=== PATIENT | male | born 1935 | race Hispanic/Latino ===

== ENCOUNTER 2019-07-10 15:56 | Inpatient (IN) | payer MEDICARE ==
[~2019-07-10] VITALS: Ht 152.4 cm; Wt 45.8 kg
[~2019-07-10 15:56] MED LIST: CALCITRIOL0.25 MCG PO; CEPHALEXIN500 MG PO; FLOMAX0.4 MG PO; FUROSEMIDE40 MG PO; HYDRALAZINE HCL25 MG PO; HYDROCODON-ACE1 EAC3 PO; LISINOPRIL5 MG PO; METOPROLOL TART50 MG PO; RENVELA0.8 GM PO; SENSIPAR30 MG PO
[2019-07-10 18:20] LABS: STREPTOCOCCUS GRP A ANTIGEN NEGATIVE (NEGATIVE)
[2019-07-10 18:31] LABS: INFLUENZAE A&B ANTIGEN (RAPID) NEGATIVE (NEGATIVE)
--- NOTE | 2019-07-10 19:15 | Diagnostic Imaging Report ---
EXAMINATION: PA and lateral views of the chest. COMPARISON: None CLINICAL HISTORY: Possible bronchitis, cough for 2 days DISCUSSION: Lines/tubes: None. Lungs and pleura: The lungs are well inflated. Opacification of the lower half of the left hemithorax with obscuration of the left hemidiaphragm, consistent with large left pleural effusion and likely associated atelectasis or consolidation. Linear calcifications projecting in the diaphragmatic pleura may represent pleural plaques. Heart and mediastinum: Cardiac silhouette is obscured. Central pulmonary venous congestion. Bones and soft tissues: No acute bony abnormalities. Degenerative changes in the thoracic spine IMPRESSION: Large left pleural effusion and likely associated atelectasis or consolidation. Recommend reevaluation with chest PA and lateral after appropriate treatment Signed by: Dr. Trent Arreaga M.D. on 07/10/2019 7:12 PM
[2019-07-10 19:20] LABS: BASOPHILS # (AUTO) 0.1 (0.0-0.1); BASOPHILS % 1.2 % (0.0-1.0); EOSINOPHILS # (AUTO) 0.2 (0.0-0.4); EOSINOPHILS % 3.9 % (0.0-6.0); HEMATOCRIT 42.2 % (38.2-49.6); HEMOGLOBIN 13.5 g/dL (14.0-18.0); LYMPHOCYTES # (AUTO) 1.1 (1.0-3.2); LYMPHOCYTES % 18.9 % (18.0-39.1); MEAN CORPUSCULAR HEMOGLOBIN 27.1 pg (28-32); MEAN CORPUSCULAR VOLUME 84.7 fL (81-99); MONOCYTES # (AUTO) 0.5 (0.2-0.8); MONOCYTES % 9.4 % (4.4-11.3); NEUTROPHILS # (AUTO) 3.7 (2.1-6.9); NEUTROPHILS % 66.2 % (38.7-80.0); PLATELET COUNT 193 x10e3/uL (140-360); RED BLOOD COUNT 4.98 x10e6/uL (4.3-5.7); RED CELL DISTRIBUTION WIDTH 15.9 % (11.7-14.4)
[2019-07-10 19:27] LABS: INR 0.82; PROTHROMBIN TIME 11.8 seconds (11.9-14.5)
[2019-07-10 19:28] LABS: PARTIAL THROMBOPLASTIN TIME 43.9 seconds (23.8-35.5)
[2019-07-10] MEDS ORDERED: CEFTRIAXONE SOD 1 GM/NS 50 ML 50 ML IV SCH (19:30)
[2019-07-10 19:35] LABS: ALBUMIN 3.1 g/dL (3.5-5.0); ALBUMIN/GLOBULIN RATIO 0.7 (0.8-2.0); ANION GAP 13.7 mmol/L (8-16); CALCIUM 10.1 mg/dL (8.4-10.2); CREATININE, SERUM 2.34 mg/dL (0.72-1.25); POTASSIUM 3.7 mmol/L (3.5-5.1)
[2019-07-10 19:46] LABS: CREATINE KINASE MB 0.7 ng/mL (0-5.0)
[2019-07-10] MEDS: AZITHROMYCIN 500MG/NS 250 ML 250 ML IV SCH (20:45)
[2019-07-10] MEDS ORDERED: SODIUM CHLORIDE FLUSH 10 ML SYR INJ PRN (21:00)
[2019-07-10] MEDS ORDERED: CEFEPIME 1GM/NS 0.9% 50 ML 50 ML IV SCH (22:00)
--- NOTE | 2019-07-10 22:12 | NUR ---
Pulmonary Get thoracentesis for diagnostic and therapeutic purposes Empiric abx in the meanwhile to cover for resistant hospital associated organisms Thanks
[2019-07-11] VITALS (7 sets, daily range): BP systolic 105–168; BP diastolic 52–84
--- NOTE | 2019-07-11 02:16 | NUR ---
Received report from ER nurse.
--- NOTE | 2019-07-11 03:05 | NUR ---
Patient arrived to floor via stretcher.
--- NOTE | 2019-07-11 04:03 | NUR ---
Patient had a small, brown, soft BM. Patient AAOx1-2. Tele SR 85.Left upper arm fistula with thrill and bruit.
--- NOTE | 2019-07-11 06:57 | NUR ---
H&P cc: sob HPI: 83yoM, PCP unknown, with hx ESRD on HD, now with SOB, found to have pleural effusion. Pt is poor historian. PMH: ESRD on HD, Elderly fall, HTN, Dementia, Gout, OA PSHx: HD access Allergies; see emr Fh/Sh; family involved in care; no illicits meds; see MAR ROS: unreliable v/s; revd PE tired appearing; malnourished appearing anicteric; bitemporal wasting; ns1s2 reduced breath sounds; left arm with bruit at fistula site no edema skin dry flat affect labs/meds revd A/P: left Pleural effusion- will need thoracentesis ESRD on HD- nephr consult HTN- home med Physical deconditioning- PT Moderate to severe Protein-calorie malnutrition- check PreAlb; start renal ensure. Prop; scd Dispo: pulm consulted; drainage pending; Junior Mejía MD, PhD.
[2019-07-11] MEDS ORDERED: ONDANSETRON HCL INJ 2MG/ML 2ML 2 MG/ML VIAL IV PRN (07:00)
[2019-07-11] MEDS ORDERED: DOCUSATE SODIUM 100 MG CAP PO PRN (07:00)
--- NOTE | 2019-07-11 07:00 | NUR ---
BEDSIDE SHIFT REPORT RECEIVED FROM THE MARKETING ASSISTANT MANAGER RN. PT AAOX1. BED IS LOW AND LOCKED. SIDE RAILS X2. BED ALARM IS ON. PT DENIES NEEDS AT THIS TIME.
[2019-07-11] MEDS: SEVELAMER CARBONATE 800 MG TAB PO SCH ×4 (08:30→16:56)
[2019-07-11] MEDS: METOPROLOL TARTRATE 50 MG TAB PO SCH ×2 (09:09→18:00)
[2019-07-11] MEDS: HYDRALAZINE HCL 25 MG TAB PO SCH ×3 (09:09→20:40)
[2019-07-11] MEDS: CINACALCET 30 MG TAB PO SCH (09:10)
--- NOTE | 2019-07-11 10:00 | NUR ---
MULTIPLE CALLS MADE TO GET TELEPHONE CONSENT FOR THORACENTESIS. NO ANSWER. LEFT MESSAGE.
--- NOTE | 2019-07-11 11:00 | NUR ---
FAMILY ARRIVED AT BEDSIDE. DR. ANAYA PRESENT. RECEIVED CONSENT FROM DAUGHTER SRIRAM. THORACENETSIS IMAGE GUIDED LATERALLY PER SKIP TENDER PER DR. ANAYA
--- NOTE | 2019-07-11 11:34 | NUR ---
Pulmonary [id number] Thanks!
--- NOTE | 2019-07-11 12:30 | NUR ---
PT OFF UNIT FOR PROCEDURE IN SAFE CONDITION.
--- NOTE | 2019-07-11 13:35 | NUR ---
PT BACK TO UNIT AFTER PROCEDURE. FAMILY AT BEDSIDE.
--- NOTE | 2019-07-11 13:36 | NUR ---
1050 ML OUTPUT AFTER THORACENTESIS PER THE DIAGNOSTIC MEDICAL SONOGRAPHER.
--- NOTE | 2019-07-11 13:39 | Diagnostic Imaging Report ---
Exam: Ultrasound guided thoracentesis Clinical History: Pleural effusion Consent: Benefits and risks were explained to the patient's family who gave consent to the procedure. Complication: None immediate Procedure: The patient was placed in right decubitusposition. The left posterior chest was prepped and draped in usual sterile fashion. 1% lidocaine was used as local anesthetic. Under ultrasound guidance, a thoracentesis catheter was inserted into the pleural cavity. Approximately 1050 cc of light brown-colored fluid was aspirated. The catheter was removed. The specimen was sent to the laboratory for further analysis. The patient tolerated the procedure well without any adverse reaction. A STAT chest x-ray was ordered. The patient left the department in stable condition. Impression: Ultrasound guided left thoracentesis. Signed by: Dr. Bruce Pena MD on 07/11/2019 1:37 PM
--- NOTE | 2019-07-11 13:56 | Diagnostic Imaging Report ---
Exam: Chest one view Clinical history: Status post thoracentesis Findings: Increase in hazy opacity is noted in the left hemithorax likely due to effusion. There is no evidence of pneumothorax. Increased retrocardiac opacity is also noted which may represent atelectasis versus consolidation. The cardiac size appears mildly enlarged. The regional osseous structures are unremarkable. Signed by: Dr. Bruce Pena MD on 07/11/2019 1:53 PM
--- NOTE | 2019-07-11 15:58 | NUR ---
Nutrition Intervention Note RD Recommendation(s) for Physician: - Recommend PRESCHOOL PRINCIPAL evaluation, previously on pureed diet at prior admit. Continue renal restrictions, diet texture per PRESCHOOL PRINCIPAL/MD. - Recommend Nepro BID for adequacy - Renal MVI once daily Pt meets criteria for mild protein calorie malnutrition Plan of Care: RD following, monitoring for tolerance and adequacy Nutrition reason for involvement: Dx: ESRD RD Assessment 07/11: 83 YOM admitted for ESRD, PNA, and pleural effusion. Pt seen today per admit dx. Pt s/p thoracentesis today, sleeping at time of visit. Pt's at bedside reports good intake at home most of the time, sometimes fair. She reports he drinks 1 Nepro per day, she encourages him to drink 2- RD to order Nepro BID to meet needs. Pt's denies any N/V/C/D. She reports that he requires assistance with feedings and is on a mechanical soft diet at home, pt on pureed diet per last admit in April- recommend PRESCHOOL PRINCIPAL evaluation for po diet safety. Pt's with no questions or concerns at time of visit. Chart reviewed. Will continue to monitor. Principal Problems/Diagnoses: ESRD, PNA, pleural effusion PMH: DJD, ESRD on HD, DM, HTN GI: LBM 07/11 Skin: no PU Labs: 07/10: Na 138, K 3.7, Cl 95, CO2 33, BUN 14, Cr 2.34, Gluc 99 Meds: sensipar, abx, renvela, zofran, colace Ht: 60in Wt: 101 lb BMI: 19.7 kg/m2 IBW: 106 lb Malnutrition Evaluation (07/11/19) The patient meets criteria for MILD protein-calorie malnutrition. Energy intake: Mild- fair intake at times per Weight loss: minor changes, 5% in 3 months per prior admit Fat loss: Mild, eyes somewhat hollow Muscle loss: Moderate, clavicle visible Supporting Evidence: Fluid accumulation: none observed Functional Status: not assessed Nutrition Prescription (Diet Order): Renal Estimated Nutritional Needs: 1648-0418 calories/day (30-35 kcal/kg CBW) 55-82 g protein/day (1.2-1.8 g pro/kg CBW) Diet Adequacy: Not meeting calorie needs, Not meeting protein needs Diet Tolerance: tolerating po, requiring PRESCHOOL PRINCIPAL strategies per Diet Education Needs Assessment: Diet education not indicated at this time Nutrition Care Level: Mod Nutrition Diagnosis: Chronic disease related malnutrition related to ESRD and requiring modified diet as evidenced by increased protein needs and ONS. Goal: Patient will meet 75-100% of estimated needs by follow up Progress: N/A Interventions: -Mineral modified diet, Commercial beverage, Recommended Modifications, Multivitamin/mineral supplement therapy, Collaboration with other providers, Monitoring/Evaluation: -Total energy intake, Total protein intake, Modified diet, Liquid supplement, Weight change Signed: Samantha Sears RD, LD, [facility]
[2019-07-11 16:37] LABS: CREATINE KINASE MB 0.9 ng/mL (0-5.0)
[2019-07-11 17:09] LABS: BODY FLUID APPEARANCE SL.CLOUDY; BODY FLUID COLOR STRAW; BODY FLUID TYPE PLEURAL
--- NOTE | 2019-07-11 17:27 | Consultation ---
DATE OF CONSULTATION: 07/11/2019 REQUESTING PHYSICIAN: Uche Verduzco MD. REASON FOR CONSULTATION: ESRD management. HISTORY OF PRESENT ILLNESS: Thank you for allowing us to participate in Mr. Campbell' care. An 83-year-old male with a history of recent failure to thrive over the last year to two, came with worsening cough and congestion. He did have nasal discharge. No definite fevers. He himself is a poor historian. ER evaluation showed left significant pleural effusion. He has what appears to be chronic dementia with memory issues. PAST MEDICAL HISTORY: Significant for: 1. ESRD. 2. Failure to thrive. 3. Likely dementia. 4. Anemia of CKD. 5. History of frequent falls. 6. Secondary hyperparathyroidism, on binders. 7. Hypertension. 8. Prior decubitus ulcer. HOME MEDICATIONS: 1. Cinacalcet 30 mg daily. 2. Hydralazine 25 t.i.d. 3. Metoprolol 100 b.i.d. 4. Renvela 1600 mg t.i.d. Currently on Zithromax, cefepime. SOCIAL HISTORY: Lives at home. FAMILY HISTORY: Unable to obtain. REVIEW OF SYSTEMS: CONSTITUTIONAL: Feels weak. RESPIRATORY: Have some cough and dyspnea. CARDIAC: No angina or syncope. NEURO: Chronic memory loss. Rest of review is negative. PHYSICAL EXAMINATION: GENERAL: Lying in bed, in no distress. VITAL SIGNS: Temperature is 97.9, pulse 80, blood pressure 168/60. HEENT: Atraumatic. NECK: Unable to see any JVD. CHEST: Decreased breath sounds on the left. CARDIAC: Normal heart tones. Rhythm sounds regular. S4 is present. EXTREMITIES: No edema. ABDOMEN: Benign. NEURO: Unable to recollect this morning's breakfast. LABORATORY DATA: Hemoglobin is 13.5, white count 5.6, and platelets of 193. Potassium 3.7, serum CO2 33, creatinine 2.34, BUN 14. Weight is only 101 pounds of note. ASSESSMENT: 1. End-stage renal disease. 2. Hypertension. 3. Left pleural effusion. 4. Overall volume status appears reasonable at this point, I do not think he will require extra ultrafiltration. 5. Satisfactory hemoglobin. PLAN: Await pulmonary evaluation. He may need a pleural tap. I agree with antibiotics. Regular Wednesday, Wednesday, Wednesday hemodialysis per usual schedule. We will follow along. MD DOROTEO Jimenez/CHOCO /[id number]
[2019-07-11 17:53] LABS: RBC,BODY FLUID 365 cells/uL; WBC,BODY FLUID 121 cells/uL
--- NOTE | 2019-07-11 18:17 | Consultation ---
DATE OF CONSULTATION: 07/11/2019 Pulmonary Medicine Consult REASON FOR REFERRAL: Pleural effusion. HISTORY OF PRESENT ILLNESS: Mr. Campbell is a pleasant 83-year-old gentleman with pleural effusion. The patient with past medical history of end-stage renal disease, GERD, hypertension, dementia. The patient states he was hospitalized at outside facility in March and he may have had x-ray there. The patient came to this hospital in April 2019, where he had a fall which hurt his left upper extremity and left shoulder. He did not have x-ray at that time. The patient may have gone to a assisted in the interim. The patient with no known previous pulmonary or pleural condition. The patient reportedly was having a sore throat. Due to his baseline weakness, the patient was referred to emergency room. Chest x-ray showed a large left pleural effusion, which occupied probably more than half of the left hemithorax. At this point, I am consulted. The patient without veronica fevers. No veronica shortness of breath. PAST MEDICAL HISTORY: End-stage renal disease on hemodialysis for three years, hypertension, GERD, dementia. MEDICATIONS: Medication list reviewed per the chart record. ALLERGIES: NO KNOWN DRUG ALLERGIES. SOCIAL HISTORY: The patient only smoked two years of his life, is mainly a nonsmoker. No drugs. No alcohol. He is and his is still independent. FAMILY HISTORY: Noncontributory. REVIEW OF SYSTEMS: Cannot get reliably as patient is not oriented. OBJECTIVE: VITAL SIGNS: Currently afebrile, vital signs noted and reviewed per the chart record. GENERAL: Calm, in bed. HEENT: Normocephalic, atraumatic. NECK : Supple. Throat midline. LUNGS: Bilateral air entry, decreased breath sounds on the left side. Few rales. CARDIOVASCULAR: S1 and S2. No murmurs, rubs, or gallops. ABDOMEN: Soft, nontender. EXTREMITIES: No clubbing. No cyanosis. There is no edema. INTEGUMENT: No rash, just thin skin mildly, no purpura. LABORATORY DATA: 5.6 white count, 42 hematocrit, 193 platelets. 14 BUN, 2.3 creatinine. 3.7 potassium. IMPRESSION AND PLAN: 1. Large left-sided pleural effusion. 2. Treat for possible pneumonia, hospital-acquired organisms and would be acquired prior to hospitalization. 3. Recent April 2019 fall with no definite trauma. Seems less likely hemothorax. 4. Hypertension. 5. Gastroesophageal reflux disease. 6. End-stage renal disease, on hemodialysis for 3 years. We will get thoracentesis today. Send for diagnostic studies antibiotics. Antibiotic should cover for resistant organisms. I discussed with the and daughter already. Follow up closely. MD TAHIR Riley/MODL /[id number]
--- NOTE | 2019-07-11 19:00 | NUR ---
BEDSIDE SHIFT REPORT GIVEN TO THE PREFORMER IMPREGNATED FABRICS RN. PT DENIED FURTHER NEEDS.
--- NOTE | 2019-07-11 19:05 | NUR ---
Patient visited in room during nursing rounds. Patient alert and oriented x1. Pt german speaking only. Pt has hemodialysis MWF with access of left upper arm fistula. S/P left thoracentesis today. Pt on bedrest and appear having generalized weakness. Bed alarm active. Pt on scheduled IV antibiotics. Call greene within reach.
[2019-07-11 19:14] LABS: EOSINOPHILS,BODY FLUID 4 %; LYMPHOCYTES,BODY FLUID 66 %; MONO/MACROPHG,BODY FLUID 10 %; NEUTROPHILS,BODY FLUID 7 %; OTHER CELLS,BODY FLUID 13 %
[2019-07-11] MEDS ORDERED: SODIUM CHLORIDE 0.9% 250ML 250 ML ONE (20:34)
[2019-07-11] MEDS: AZITHROMYCIN 500MG/NS 250 ML 250 ML IV SCH (20:38)
[2019-07-11] MEDS ORDERED: ZOLPIDEM TARTRATE 5 MG TAB PO PRN (21:00)
[2019-07-12] VITALS (8 sets, daily range): BP systolic 136–167; BP diastolic 42–77
--- NOTE | 2019-07-12 06:31 | Diagnostic Imaging Report ---
Examination: Single AP view of the chest. COMPARISON: 07/11/2019 INDICATION: Effusion DISCUSSION: Hazy opacity over the inferior left hemithorax related to pleural effusion. Retrocardiac airspace disease may reflect atelectasis or aspiration. No new consolidations. Stable cardiomediastinal contour. No acute osseous abnormality. Calcifications project over the upper abdomen, unchanged. IMPRESSION: Left pleural effusion with adjacent lower lobe airspace disease, likely atelectasis. Signed by: Dr. Shalom Oneill M.D. on 07/12/2019 6:28 AM
--- NOTE | 2019-07-12 06:41 | NUR ---
IM- progress note O/N see below ROS: unreliable v/s; revd PE tired appearing; malnourished appearing anicteric; bitemporal wasting; ns1s2 reduced breath sounds; left arm with bruit at fistula site no edema skin dry flat affect labs/meds revd A/P: left Pleural effusion- will need thoracentesis ESRD on HD- nephr consult HTN- home med Physical deconditioning- PT Moderate to severe Protein-calorie malnutrition- check PreAlb; start renal ensure. Prop; scd Dispo: pulm consulted; drainage pending; 07/12 check H/H; reported 1050ml fluid removed; start PTmobilize; Junior Mejía MD, PhD.
[2019-07-12 06:51] LABS: HEMATOCRIT 35.5 % (38.2-49.6); HEMOGLOBIN 11.1 g/dL (14.0-18.0)
--- NOTE | 2019-07-12 07:05 | NUR ---
Received patient lying in bed with eyes closed. Respiration even and unlabored without SOB. Call light in reach.
[2019-07-12] MEDS: SEVELAMER CARBONATE 800 MG TAB PO SCH ×3 (08:54→18:44)
[2019-07-12] MEDS: CINACALCET 30 MG TAB PO SCH (08:55)
[2019-07-12] MEDS: HYDRALAZINE HCL 25 MG TAB PO SCH ×3 (09:00→20:53)
[2019-07-12] MEDS: METOPROLOL TARTRATE 50 MG TAB PO SCH ×2 (09:00→18:44)
--- NOTE | 2019-07-12 11:05 | NUR ---
Spoke with Sharla from [facility] to notify today's scheduled HD.
--- NOTE | 2019-07-12 12:51 | NUR ---
Pulmonary Medicine DATE 07/12/2019 SUBJECTIVE: PATIENT reporte with 1050 cc out by left thoracentesis yesterday CXR today with small residual effusion, left lung opacities persist borderline analysis, but exudative by lights criteria 66% lymphocytes d/w REVIEW OF SYSTEMS: Cannot get reliably as patient is not oriented. OBJECTIVE: VITAL SIGNS: vital signs noted and reviewed per the chart record. GENERAL: Calm, in bed. HEENT: Normocephalic, atraumatic. NECK : Supple. Throat midline. LUNGS: Bilateral air entry, decreased breath sounds on the left side. Few rales. CARDIOVASCULAR: S1 and S2. No murmurs, rubs, or gallops. ABDOMEN: Soft, nontender. EXTREMITIES: No clubbing. No cyanosis. no edema. INTEGUMENT: No rash, just thin skin mildly, no purpura. LABORATORY DATA: per emr IMPRESSION AND PLAN: 1. Large left-sided pleural effusion s/p thoracentesis. Exudative by Lights criteria. 2. Treat for possible pneumonia, hospital-acquired organisms and would be acquired prior to hospitalization. 3. Hypertension. 4. Gastroesophageal reflux disease. 5. End-stage renal disease, on hemodialysis for 3 years. Follow thoracentesis analysis of fluid Check CT chest with iv contrast Empiric Antibiotics Follow up closely. Thank you Dr Mejía. Please call with questions.
--- NOTE | 2019-07-12 13:37 | Progress Note ---
DATE: 07/12/2019 SUBJECTIVE: He is status post ultrasound-guided thoracentesis, still with some left pleural effusion. He says breathing is better, although he is somewhat of a poor historian lately. OBJECTIVE: VITAL SIGNS: Temp 97.2, pulse 55, blood pressure 136/42. CHEST: Diminished breath sounds at the left base. EXTREMITIES: No edema. VASCULAR EXAM: Pain in left upper extremity AV fistula. LABORATORY DATA: Hemoglobin is 11.1. Last potassium was 3.7. ASSESSMENT: 1. End-stage renal disease. 2. Hypertension. 3. Left pleural effusion. 4. Dementia. 5. Failure to thrive. 6. Anemia of chronic kidney disease secondary hyperparathyroidism, on binders. PLAN: 1. Hemodialysis today 4 hour run, 3 L fluid removal target, 3 potassium bath, blood flow rate 350 mL/minute. 2. Dialysate flow rate 700 mL/minute. 3. F160 filter. MD DOROTEO Jimenez/CHOCO /[id number]
[2019-07-12] MEDS ORDERED: SODIUM CHLORIDE 0.9% 1000ML 2,000 ML ONE (14:04)
--- NOTE | 2019-07-12 15:15 | NUR ---
Visit made by the Spiritual Care Department Pastoral Visitor, Toña Villanueva. PV provided ashes for Evert Wednesday. Pastoral Visitor informed pt/family of the scope of [employer] and availability. MARIAMA SANCHEZ Police Commanding Officer Spiritual Care Department O: [phone]
--- NOTE | 2019-07-12 15:46 | NUR ---
SPOKE WITH ABOUT [facility], SHE STATES SHE HAS HAD A HORRIBLE EXPERIENCE WITH [facility] AND WILL NEVER SEND HER TO A SNF AGAIN, SHE IS REFUSING ANY REFERRAL FOR SNF. SHE STATES SHE HAD [facility] AND WILL UTILIZE THEM AGAIN IF NEEDED.
--- NOTE | 2019-07-12 15:47 | NUR ---
STATES HAS A PROVIDER FOR 30 HOURS A WEEK
--- NOTE | 2019-07-12 16:42 | NUR ---
ORDER RECEIVED FOR HOME HEALTH / PT. MET W THE PT AND FAMILY AT THE BEDSIDE TO DISCUSS CHOICE. STATES THE PT IS ALREADY ON SERVICE W [facility] AND WOULD LIKE TO CONTINUE USING THEM. STATES THE PT HAS A PROVIDER 30HRS/WEEK ALSO. CHOICE LETTER WAS SIGNED AND PLACED IN CHART. REFERRAL FAXED TO [facility] AT OFF: [phone] / FAX: [phone]
--- NOTE | 2019-07-12 19:06 | NUR ---
Report given to pizza delivery. Patient is currently transported back to room from CT. Family at bedside.
--- NOTE | 2019-07-12 19:10 | NUR ---
Patient visited in room during nursing rounds. Patient alert and oriented x1. Pt persian speaking only. Patient just came back from CT of chest via hospital bed and is in stable condition. at bedside. Pt had hemodialysis today with output of 2.2 L with access of left upper arm fistula. Pt on bedrest and still having generalized weakness. Bed alarm active. Pt on scheduled IV antibiotics. Call greene within reach.
[2019-07-12] MEDS ORDERED: SODIUM CHLORIDE 0.9% 50ML 50 ML ONE (19:58)
[2019-07-12] MEDS ORDERED: IOPAMIDOL 370 MG/ML 200 ML INFUS..BTL INJ ONE (19:58)
[2019-07-12] MEDS: AZITHROMYCIN 500MG/NS 250 ML 250 ML IV SCH (20:39)
--- NOTE | 2019-07-12 21:26 | Diagnostic Imaging Report ---
EXAMINATION: CT scan of the chest with contrast. TECHNIQUE: Spiral CT images of the chest were performed from the lung apices to the level of the adrenal glands after the intravenous administration of 100 cc of Isovue 370. Coronal and sagittal reformatted images were obtained. COMPARISON: Chest radiograph 07/12/2019 CLINICAL HISTORY:Exudative pleural effusion, concern for pneumonia DISCUSSION: LINES/TUBES: None. LUNGS AND AIRWAYS: Biapical pleural-parenchymal scar. Right greater than left upper lobe bronchiectasis. Scattered subfour submillimeter nodules throughout the right upper and lower lobes. 5 mm spiculated nodule laterally in the left upper lobe seen on series 3 image 47. Bandlike fibrotic change in the inferior lingula. Consolidation of the medial basal, posterior basal, and lateral basal segments of the left lower lobe with a moderate left pleural effusion with smooth pleural enhancement. The pleural fluid measures approximately 25 Hounsfield units in density. There is extensive mucous plugging in the left lower lobe bronchial tree and, to a lesser extent the left upper lobe bronchial system. Right-sided bronchi are patent. PLEURA: No pneumothorax. No right pleural effusion. Bilateral dystrophic calcifications in the upper abdomen appear to be inferior to the diaphragms and may relate to prior trauma or inflammatory process. HEART AND MEDIASTINUM: The thyroid gland is normal. No ectasia or aneurysmal dilatation of the thoracic aorta. Great vessel origins are of normal caliber and configuration with atherosclerotic calcification throughout. Atherosclerotic calcifications of the nez perce coronary arteries. Patulous esophagus, likely age-related. Pulmonary outflow tract is of normal caliber. Dilated left cephalic vein is partially visualized. LYMPH NODES: No axillary lymphadenopathy. There are multiple calcified mediastinal nodes most notably at the subcarinal station, as well as several calcified bilateral hilar lymph nodes. ABDOMEN: The kidneys are diminutive with innumerable cysts in keeping with end stage renal disease area calcified granulomata within the liver. No adrenal nodules. BONES AND SOFT TISSUES: No osseous destructive lesions. Degenerative changes of the partially visualized lower cervical spine. Cachexia without focal soft tissue abnormality. IMPRESSION: Left lower lobe aspiration pneumonia with a moderate parapneumonic effusion. No thick pleural enhancement to suggest empyema, though correlation with recently performed thoracentesis is suggested. Less extensive aspiration pneumonitis in the left upper lobe. 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 Atherosclerotic vascular disease. Signed by: Dr. Shalom Oneill M.D. on 07/12/2019 9:23 PM
--- NOTE | 2019-07-12 21:57 | NUR ---
Called and spoke with Dr. Mahoney via phone to report of CT chest result. MD aware and ordered for Speech Therapy Evaluation with possible MBS tomorrow (07/13/19).
--- NOTE | 2019-07-13 01:30 | NUR ---
PULMONARY ADDENDUM Reviewed Ct chest. LIMITED CT chest as there was significant retained fluid. Underlying mostly apical tubular bronchiectasis. The Left lower lobe with dense atelectasis which could be from compressive atelectasis, endobronchial obstruction (such as mucous plugging, seen) OR from other process. However there is consideration for pneumonia. There are diaphragmatic plaques. Clinically there is a suggestion of possible pleural disease, based on Lights criteria. The patient's dialysis (institutional) requirement should mandate that he undergo appropriate epidemiologic screening for contagion. Usual standard is to rule out MTB, other conditions as per family wishes. rec: Will repeat a thoracentesis and repeat fluid analysis (cell count/LDH + ?ADA), then consider repeat CT chest to view the LLL obstructing plug. Usual care would likely lead to VATS exploration, unless a persistent obstructin g plug remains. However if team/nephrology is ok with ruling out contagiousness, rather than best diagnostic test then I can perform a bronchoscopy on Wednesday after the above. Will discuss with family.
[2019-07-13] MEDS: SEVELAMER CARBONATE 800 MG TAB PO SCH ×3 (06:19→18:32)
--- NOTE | 2019-07-13 07:13 | NUR ---
Received patient lying in bed with eyes closed. Respiration even and unlabored without SOB. Family at bedside. Call light in reach.
[2019-07-13 08:12] VITALS: BP 139/59
--- NOTE | 2019-07-13 08:16 | NUR ---
IM- progress note O/N see below ROS: unreliable v/s; revd PE tired appearing; malnourished appearing anicteric; bitemporal wasting; ns1s2 reduced breath sounds; left arm with bruit at fistula site no edema skin dry flat affect labs/meds revd A/P: left Pleural effusion- will need thoracentesis ESRD on HD- nephr consult HTN- home med Physical deconditioning- PT Moderate to severe Protein-calorie malnutrition- check PreAlb; start renal ensure. Prop; scd Dispo: pulm consulted; drainage pending; 07/12 check H/H; reported 1050ml fluid removed; start PTmobilize; 07/13 Pleural disease- mycobacterial TB being ruled out; LDH low; cont w-up; d/w daughter at bedside. Junior Mejía MD, PhD.
[2019-07-13 09:50] VITALS: BP 139/59
[2019-07-13] MEDS: HYDRALAZINE HCL 25 MG TAB PO SCH ×3 (11:19→21:00)
[2019-07-13] MEDS: METOPROLOL TARTRATE 50 MG TAB PO SCH ×2 (11:19→18:33)
[2019-07-13] MEDS: CINACALCET 30 MG TAB PO SCH (11:20)
[2019-07-13 11:21] VITALS: BP 142/54
--- NOTE | 2019-07-13 15:30 | NUR ---
ST NOTE: Pt is NPO for thorocentesis, unable to complete BSE at this time. Pt with history of aspiration, on puree texture with thickened liquids at home, in hospital for LLL aspiration PNA, ERSD, plaural effusion. Spoke with MILLY Baldwin. Recommend MBS on 07/14/19 with history of dysphagia and current PNA.
[2019-07-13 15:33] VITALS: BP 142/71
[2019-07-13] MEDS: ACETAMINOPHEN 325 MG TAB PO PRN (17:07)
--- NOTE | 2019-07-13 18:02 | Diagnostic Imaging Report ---
Examination: Single AP view of the chest. COMPARISON: AP chest 07/12/2019, CT chest 07/12/2019 INDICATION: Post thoracentesis IMPRESSION: 1. Lines and Tubes: None 2. Lungs are well-inflated. Interval decrease in previously visualized left pleural effusion. Persistent left mid and lower lung opacity, which may reflect atelectasis. Concave lucency projecting in the left costophrenic angle region likely external to the patient. No definite evidence of pneumothorax. Recommend decubitus film for further evaluation. 3. Cardiomediastinal silhouette is obscured. Central venous congestion. 4. No acute bony abnormalities. Signed by: Dr. Trent Arreaga M.D. on 07/13/2019 6:00 PM
[2019-07-13 18:12] LABS: BODY FLUID APPEARANCE CLOUDY; BODY FLUID COLOR RED; BODY FLUID TYPE PLEURAL
--- NOTE | 2019-07-13 19:15 | NUR ---
Report given to night nurse, patient lying in bed with eyes open. Respiration even and unlabored without SOB. Call light in reach.
--- NOTE | 2019-07-13 19:53 | NUR ---
Pulmonary Medicine DATE 07/13/2019 SUBJECTIVE: CT chest noted d/w regarding the needed workup prior to going back to dialysis facility discussed hospice option, with ESRD and advanced neurologic disease. she cried, seeming to accept that we were possibly crossing the line for what the patient would have wanted. however when the focus is on getting the patient better, she tries to be optimistic about any options thoracentesis 400 cc out today REVIEW OF SYSTEMS: Cannot get reliably as patient is not oriented. OBJECTIVE: VITAL SIGNS: vital signs noted and reviewed per the chart record. GENERAL: Calm, in bed. HEENT: Normocephalic, atraumatic. NECK : Supple. Throat midline. LUNGS: Bilateral air entry, some decreased breath sounds on the left side. CARDIOVASCULAR: S1 and S2. No murmurs, rubs, or gallops. ABDOMEN: Soft, nontender. EXTREMITIES: No clubbing. No cyanosis. no edema. INTEGUMENT: No rash, no purpura. LABORATORY DATA: labs pending IMPRESSION AND PLAN: 1. Large left-sided pleural effusion s/p thoracentesis. Exudative, lymphocytic by Lights criteria. 2. Treat for possible pneumonia, hospital-associated organisms acquired prior to hospitalization. 3. Hypertension. 4. Gastroesophageal reflux disease. 5. End-stage renal disease, on hemodialysis for 3 years. 6. 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 Finally treated at [facility]. Follow thoracentesis re-analysis of fluid -follow cytology, cell counts Empiric Antibiotics check histo, coccidio Consider hospice. d/w , she will talk to son VATS reasonable for maximal diagnostic yield, but will check *bronchoscopy first* to assess for contagiosity with a reasonable diagnostic yield. Continue dialysis-- unless patient is for hospice Follow up closely. Thank you Dr Mejía. Please call with questions.
[2019-07-13 20:00] VITALS: BP 149/70
[2019-07-13] MEDS: AZITHROMYCIN 500MG/NS 250 ML 250 ML IV SCH (20:00)
[2019-07-13 20:15] LABS: EOSINOPHILS,BODY FLUID 3 %; LYMPHOCYTES,BODY FLUID 56 %; MONO/MACROPHG,BODY FLUID 9 %; NEUTROPHILS,BODY FLUID 18 %; OTHER CELLS,BODY FLUID 14 %
[2019-07-13 20:20] LABS: RBC,BODY FLUID 19246 cells/uL; WBC,BODY FLUID 396 cells/uL
[2019-07-13 21:24] VITALS: BP 149/70
[2019-07-14] VITALS (8 sets, daily range): BP systolic 95–180; BP diastolic 50–79
[2019-07-14 07:02] LABS: INR 0.96; PROTHROMBIN TIME 13.3 seconds (11.9-14.5)
[2019-07-14 07:03] LABS: PARTIAL THROMBOPLASTIN TIME 49.4 seconds (23.8-35.5)
--- NOTE | 2019-07-14 07:17 | Diagnostic Imaging Report ---
Examination: Single AP view of the chest. COMPARISON: 07/13/2019 at 1739 INDICATION: Pneumonia DISCUSSION: Lungs are well-inflated. Persistent left lower lobe consolidation. Crescentic lucency along the left lateral cost phrenic sulcus may reflect ex vacuo pneumothorax in the setting of recent thoracentesis. Right lung remains grossly clear. Stable cardiomediastinal contour with pulmonary venous congestion. No acute osseous abnormality. IMPRESSION: Persistent left lower lobe consolidation. Lateral costophrenic lucency may reflect ex vacuo pneumothorax in the setting of previous thoracentesis. Signed by: Dr. Shalom Oneill M.D. on 07/14/2019 7:15 AM
[2019-07-14] MEDS: SEVELAMER CARBONATE 800 MG TAB PO SCH ×3 (07:30→18:03)
--- NOTE | 2019-07-14 07:40 | NUR ---
PATIENT IN STABLE CONDITION WITH NO S/S OF RESPIRATORY DISTRESS. NO PAIN INDICATED. BED ALARM APPLIED; 3 RAILS RAISED FOR SAFETY. AIR PUMP APPLIED. CALL LIGHT IS WITHIN REACH, PATIENT INSTRUCTED TO CALL FOR ASSISTANCE NEEDED.
--- NOTE | 2019-07-14 07:53 | NUR ---
Patient is npo for possible procedure with Dr. Mahoney, patient cannot sign consent and so daughter Charisma has being called and voice mail left for her to call back
--- NOTE | 2019-07-14 08:02 | NUR ---
Patient daughter called back and refused to give over the phone consent because she has some concerns about previous lung fluid that was collected and sent to lab.
--- NOTE | 2019-07-14 08:56 | NUR ---
CALLED AND SPOKE WITH DR. ANAYA- DR. ANAYA IS AWARE THAT THE PATIENT'S FAMILY (DAUGHTER- SRIRAM BLACKBURN) DOES NOT WANT TO SIGN CONSENT UNTIL SHE SPEAKS WITH DR. ANAYA PRIOR TO THE SCHEDULE BRONCHOSCOPY. DR. ANAYA WILL CONTACT THE FAMILY.
[2019-07-14] MEDS: HYDRALAZINE HCL 25 MG TAB PO SCH ×3 (09:00→21:04)
[2019-07-14] MEDS: METOPROLOL TARTRATE 50 MG TAB PO SCH ×2 (09:00→18:03)
--- NOTE | 2019-07-14 09:10 | Diagnostic Imaging Report ---
PROCEDURE: Ultrasound-guided thoracentesis Procedural Personnel Attending physician(s): Lluvia Eagle MD Fellow physician(s): None Resident physician(s): None Advanced practice provider(s): None Pre-procedure diagnosis: Pleural effusion Post-procedure diagnosis: Same Indication: Pleural effusion with compromised respiration Additional clinical history: None Complications: No immediate complications. IMPRESSION: Ultrasound-guided thoracentesis with drainage of 400 mL of serosanguinous fluid. Plan: Resume care by clinical team. PROCEDURE SUMMARY: - Limited thoracic ultrasound - Ultrasound-guided thoracentesis - Additional procedure(s): None PROCEDURE DETAILS: Pre-procedure Consent: Informed consent for the procedure including risks, benefits and alternatives was obtained and time-out was performed prior to the procedure. Preparation: The site was prepared and draped using maximal sterile barrier technique including cutaneous antisepsis. Anesthesia/sedation Level of anesthesia/sedation: No sedation Anesthesia/sedation administered by: Not applicable Total intra-service sedation time (minutes): N/A Limited thoracic ultrasound Limited thoracic ultrasound was performed using a curved transducer. A safe window for thoracentesis was identified. Left hemithorax findings: Small pleural effusion Right hemithorax findings: Not investigated Thoracentesis Local anesthesia was administered. The pleural space was accessed under real-time ultrasound guidance and fluid return confirmed position. The fluid was drained. The catheter was removed, and a sterile bandage was applied. Catheter placed: 5F Karlieeh Post-drainage hemithorax findings: Trace effusion Additional Details Additional description of procedure: None Equipment details: None Specimens removed: Pleural fluid Estimated blood loss (mL): Less than 10 Standardized report: [email or web address] Attestation Signer name: Lluvia Eagle MD I attest that I was present for the entire procedure. I reviewed the stored images and agree with the report as written. Signed by: Lluvia Eagle MD on 07/14/2019 9:08 AM
[2019-07-14] MEDS ORDERED: EPINEPHRINE HCL 1:1000 1ML 1 MG/ML AMP ONE (09:54)
[2019-07-14] MEDS ORDERED: LIDOCAINE HCL 4% 50 ML BTL ONE (09:54)
--- NOTE | 2019-07-14 10:15 | NUR ---
PATIENT OFF THE UNIT TO OR FOR PROCEDURE. PATIENT IN STABLE CONDITION WITH NO S/S OF RESPIRATORY DISTRESS. TELEMETRY APPLIED. N95 MASK APPLIED TO PATIENT PRIOR TO TRANSPORTATION.
--- NOTE | 2019-07-14 10:44 | NUR ---
IM- progress note O/N see below ROS: unreliable v/s; revd PE tired appearing; malnourished appearing anicteric; bitemporal wasting; ns1s2 reduced breath sounds; left arm with bruit at fistula site no edema skin dry flat affect labs/meds revd A/P: left Pleural effusion- will need thoracentesis ESRD on HD- nephr consult HTN- home med Physical deconditioning- PT Moderate to severe Protein-calorie malnutrition- check PreAlb; start renal ensure. Prop; scd Dispo: pulm consulted; drainage pending; 07/12 check H/H; reported 1050ml fluid removed; start PTmobilize; 07/13 Pleural disease- mycobacterial TB being ruled out; LDH low; cont w-up; d/w daughter at bedside. 07/14 Coag negative staph bacteremia- recheck cultures now; Bronch pending; hospice an option thereafter. Junior Mejía MD, PhD.
[2019-07-14] MEDS ORDERED: BENZOCAINE/TETRACAINE/BUTAMBEN AERO SPRAY 56 GM CAN ONE (11:03)
--- NOTE | 2019-07-14 11:15 | NUR ---
CALLED AND SPOKE WITH DR. REYNOSO REGARDING LAB RESULTS OF BLOOD CULTURE BEING GRAM POSITIVE COCCI IN PAIRS AND CLUSTERS- NO NEW ORDERS RECEIVED. RECEIVED ORDER FROM DR. REYNOSO REGARDING MBS.
[2019-07-14] MEDS ORDERED: SODIUM CHLORIDE 0.9% 1000ML 2,000 ML ONE (12:00)
--- NOTE | 2019-07-14 12:01 | NUR ---
CALLED AND SPOKE WITH DR. ANAYA REGARDING DIET ORDER. DR. ANAYA STATED FAMILY INFORMED HIM OF MBS BEING COMPLETED IN APRIL OF 2019- DR. ANAYA STATED TO ENTER DIET ORDER BASED ON APRIL 2019 RECOMMENDATION WHICH IS "MECHANICAL SOFT CHOPPED WITH EXTRA GRAVY AND NECTAR THICK". MBS ORDERED OBTAINED EARLIER FROM DR. REYNOSO.
--- NOTE | 2019-07-14 12:05 | NUR ---
Pulmonary Medicine DATE 07/14/2019 SUBJECTIVE: RA fio2 d/w daughter, d/w bronchoscopy done. retained secretions. family tells me MBS was done 04/2019? patient recovered from anesthesia REVIEW OF SYSTEMS: Cannot get reliably as patient is not oriented. OBJECTIVE: VITAL SIGNS: vital signs noted and reviewed per the chart record. GENERAL: Calm, in bed. HEENT: Normocephalic, atraumatic. NECK : Supple. Throat midline. LUNGS: Bilateral air entry, few rhonchi. CARDIOVASCULAR: S1 and S2. No murmurs, rubs, or gallops. ABDOMEN: Soft, nontender. EXTREMITIES: No clubbing. No cyanosis. no edema. INTEGUMENT: No rash, no purpura. LABORATORY DATA: labs pending IMPRESSION AND PLAN: 1. Large left-sided pleural effusion s/p thoracentesis. Exudative, lymphocytic by Lights criteria. 2. Treat for possible pneumonia, hospital-associated organisms acquired prior to hospitalization. --aspiration pneumonia --possible OTHER pneumonia with pleural fluid lymphocytosis 3. Hypertension. 4. Gastroesophageal reflux disease. 5. End-stage renal disease, on hemodialysis for 3 years. 6. 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 Finally treated at [facility]. 7. hx CVA, dementia 8. insufficient cough Treat for the active bacterial/aspiration pneumonia. Encourage expectoration. Speech evaluation, MBS likely Follow thoracentesis re-analysis of fluid -follow cytology, cell counts Empiric Antibiotics follow up histo, coccidio patient can return to outpatient HD if he is 'noncontagious' with negative AFB smears, but he will need CLOSE longitudinal follow up to ensure the disease process remits or at minimum the process DOESNT blossom. VATS would be the best procedure for diagnostic yield. Long disccussion with and daughter, future course/expectations discussed from hospice, tracheostomy, VATS, semi-conservative treatment. multiple questi ons led to a broad discussion. Continue dialysis per renal Follow up closely. Thank you Dr Mejía. Please call with questions.
--- NOTE | 2019-07-14 12:11 | NUR ---
PATIENT BACK ON THE UNIT AND WILL RECEIVE DIALYSIS NEXT. PATIENT IN STABLE CONDITION WITH NO S/S OF RESPIRATORY DISTRESS. NO PAIN INDICATED. PATIENT SUCTIONED. BED ALARM APPLIED; 3 RAILS RAISED FOR SAFETY. CALL LIGHT IS WITHIN REACH, PATIENT INSTRUCTED TO CALL FOR ASSISTANCE NEEDED.
--- NOTE | 2019-07-14 12:23 | Progress Note ---
DATE: 07/14/2019 SUBJECTIVE: Met for bronchoscopy and maintenance dialysis today. PHYSICAL EXAMINATION: VITAL SIGNS: Temperature 98, blood pressure 95/50, pulse 65. CHEST: Clear with diminished breath sounds on the left side. EXTREMITIES: No edema. NEURO: Forgetful. LABORATORY DATA: Hemoglobin is 11. Last potassium was 3.7. Last serum CO2 was 33, creatinine 2.34, reflecting decreased muscle mass. BUN is 14. ASSESSMENT: 1. End-stage renal disease. 2. Hypertension. 3. Left pleural effusion with exudate of characteristics. PLAN: 1. Await bronchoscopy. 2. Maintenance dialysis today. 3. 3-1/2 hour run, 2 to 3 L fluid removal. 4. Blood flow rate 350 mL/minute. 5. Dialysate flow rate 700 mL/minute. 6. F160 filter. MD LOIUSE JimenezK/MODL /[id number]
--- NOTE | 2019-07-14 13:36 | NUR ---
ST NOTE: Pt NPO for procedure at 0930, pt had procedure and scheduled for dialysis. MILLY Valerio spoke to RN after procedure and pt not alert enough to have MBS prior to dialysis. Dialysis to proceed. Pt will be too fatigued to complete swallow evaluation after dialysis. Spoke with Dr. Mahoney, he reviewed MBS from 05/04/19 (Pt with delayed swallow, premature spillage, reduced laryngeal elevation, pharyngeal constriction, reduced UES strength, and poor pharyngeal coordination. Penetration and micro aspiration with thin liquids, significant pharyngeal residue post swallow. Recommendation of mechanical soft chopped with nectar thick liquids with standard swallow precautions and upright for PO intake and post PO intake for [address]). [address] Mahoney will place pt on diet recommended after MBS from 05/04/19, supervision with all PO intake recommended and if pt shows s/s of aspiration make pt NPO. Speech Therapy will evaluate pt on 07/17/19. Family refused Hospice intervention when recommended by MD. Handoff to MILLY Valerio and Dr. Mahoney
[2019-07-14 14:20] LABS: BODY FLUID COLOR YELLOW
[2019-07-14 14:23] LABS: RBC,BODY FLUID 8861 cells/uL; WBC,BODY FLUID 3985 cells/uL
[2019-07-14] MEDS ORDERED: MIDAZOLAM HCL 2 MG/2 ML VIAL ONE (15:02)
[2019-07-14 15:20] LABS: LYMPHOCYTES,BODY FLUID 22 %; MONO/MACROPHG,BODY FLUID 2 %; NEUTROPHILS,BODY FLUID 27 %; OTHER CELLS,BODY FLUID 49 %
--- NOTE | 2019-07-14 15:29 | NUR ---
Nutrition Intervention Note RD Recommendation(s) for Physician: -Continue renal diet and consistency per ST/MD - Recommend Nepro BID for added nutrition - Renal MVI once daily Pt meets criteria for mild protein calorie malnutrition Plan of Care: RD following, monitoring for tolerance and adequacy Nutrition reason for involvement: Dx: ESRD RD Assessment: 07/14: Follow up. Pt was discussed during interdisciplinary rounds. Pt had a thoracentesis yesterday and bronchoscopy today per RN. Per ST note, pt was too fatigued for swallow evaluation after dialysis today and MD recommended following results of previous MBS that was performed on 05/04/19. Mechanical soft /chopped diet consistency and nectar thick liquids were recommended. It is documented in chart that pt consumed 25% of meals on 07/11, 75% of lunch on 07/12, and 25% of dinner yesterday. Will continue to monitor. 07/11: 83 YOM admitted for ESRD, PNA, and pleural effusion. Pt seen today per admit dx. Pt s/p thoracentesis today, sleeping at time of visit. Pt's at bedside reports good intake at home most of the time, sometimes fair. She reports he drinks 1 Nepro per day, she encourages him to drink 2- RD to order Nepro BID to meet needs. Pt's denies any N/V/C/D. She reports that he requires assistance with feedings and is on a mechanical soft diet at home, pt on pureed diet per last admit in April- recommend COPY OPERATOR evaluation for po diet safety. Pt's with no questions or concerns at time of visit. Chart reviewed. Will continue to monitor. Principal Problems/Diagnoses: ESRD, PNA, pleural effusion PMH: DJD, ESRD on HD, DM, HTN GI: LBM 07/14 Skin: no PU Labs: 07/13: No new labs 07/10: Na 138, K 3.7, Cl 95, CO2 33, BUN 14, Cr 2.34, Gluc 99 Meds: azithromycin, Renvela, metroprolol, hydralazine, zofran, colace Ht: 60in Wt: 101 lb BMI: 19.7 kg/m2 IBW: 106 lb Malnutrition Evaluation (07/11/19) The patient meets criteria for MILD protein-calorie malnutrition. Energy intake: Mild- fair intake at times per Weight loss: minor changes, 5% in 3 months per prior admit Fat loss: Mild, eyes somewhat hollow Muscle loss: Moderate, clavicle visible Supporting Evidence: Fluid accumulation: none observed Functional Status: not assessed Nutrition Prescription (Diet Order): Renal diet with mechanical soft/chopped diet consistency and nectar thick liquids Estimated Nutritional Needs: 2225-7759 calories/day (30-35 kcal/kg CBW) 55-82 g protein/day (1.2-1.8 g pro/kg CBW) Diet Adequacy: Not meeting calorie needs, Not meeting protein needs Diet Tolerance: Tolerance pending Diet Education Needs Assessment: Diet education not indicated at this time Nutrition Care Level: Mod Nutrition Diagnosis: Chronic disease related malnutrition related to ESRD and requiring modified diet as evidenced by increased protein needs and ONS. Goal: Patient will meet 75-100% of estimated needs by follow up Progress: not progressing Interventions: -Mineral modified diet, Commercial beverage, Multivitamin/mineral supplement therapy, Collaboration with other providers Monitoring/Evaluation: -Total energy intake, Total protein intake, Modified diet, Liquid supplement, Weight change Signed: Alee Toledo RD, LD
[2019-07-14] MEDS ORDERED: ALBUMIN 25% 12.5GM 0.25 GM/ML BTL IV PRN (15:30)
[2019-07-14] MEDS ORDERED: SODIUM CHLORIDE 0.9% 1000ML 2,000 ML IV PRN (15:30)
[2019-07-14] MEDS ORDERED: SODIUM CHLORIDE 0.9% 250ML 500 ML IV PRN (15:30)
[2019-07-14 15:55] LABS: BODY FLUID APPEARANCE SL.CLOUDY
[2019-07-14] MEDS: CINACALCET 30 MG TAB PO SCH (18:03)
[2019-07-14] MEDS ORDERED: LIDOCAINE HCL 2% LOCAL INJ 5 ML SDV VIAL INJ ONE (18:29)
[2019-07-14] MEDS ORDERED: LIDOCAINE HCL 2% JELLY 5 ML TUBE ONE (18:29)
[2019-07-14] MEDS ORDERED: PROPOFOL IV EMULSION 10 MG/ML 20 ML VIAL ONE (18:29)
--- NOTE | 2019-07-14 18:36 | Operative Report ---
DATE OF PROCEDURE: 07/14/2019 SURGEON: Lion Mahoney MD PROCEDURES: Flexible bronchoscopy, bronchial washes, bronchoalveolar lavage. INDICATION: Diagnosis, lymphocytic pleuritis with pneumonia. ANESTHESIA: Monitored anesthesia care by Anesthesiology. CONSENT: Informed consent from both and daughter. OPERATIVE FINDINGS: The patient underwent preparation by Anesthesia. Bronchoscope was inserted into the right nasal opening and inserted into the vocal cord, pharynx area. The patient had bilateral vocal cord movement and there was instillation of 2% lidocaine locally. Thereafter, the bronchoscope was inserted into the tracheobronchial tree. Bilateral airways were examined without endobronchial masses. It was quite evident that there were at least qcwbipax-or-yvwfz thin secretions, but there was a moderate amount of moderately thick secretions. The bronchoscope channel did not get obstructed by suctioning secretions, but the secretions were pulled out and there was a specific left lower lung field plug that was suctioned. Thereafter, washes were performed of all the airways and there was some re-pooling of secretions despite the initial washes. These were also suctioned out. The patient thereafter had bronchoalveolar lavage performed of left lower lobe anterior segment. The patient thereafter was noted to only have mildly friable airway, but there was some aydx-[id number]-[id number] hyper-collapsibility. The procedure was thereafter terminated and the scope was removed. The patient allowed to recover with anesthesia. ESTIMATED BLOOD LOSS: Minimal. COMPLICATIONS: None. IMPRESSION: 1. Successful flexible bronchoscopy with bronchial washings and bronchoalveolar lavage. Diagnostic and therapeutic suctioning were performed. 2. Moderate mucoid bronchitis, left lower lobe airway plug, which was removed. 3. No discrete endobronchial masses. RECOMMENDATIONS: Followup studies. This procedure is probably to assess for contagiosity of any infection prior to the patient go back to dialysis. The patient needs close longitudinal followup noting that the patient may need recommendation for VATS surgery in the future if his procedure worsens. MD TAHIR Riley/CHOCO /[id number]
--- NOTE | 2019-07-14 19:00 | NUR ---
Received patient from day nurse, patient is alert and but not oriented, patient on air borne isolation. safety and fall precautions maintained as per hospital protocol: bed in lowest position and locked, needed items beside bed and call greene placed close to patient, patient bwife is at the bed side, she was made aware not to feed patient as per Dr. Mahoney, she verbalized understanding, patient is currently stable will continue to monitor.
--- NOTE | 2019-07-14 19:16 | NUR ---
PATIENT IN STABLE CONDITION WITH NO S/S OF RESPIRATORY DISTRESS. NO PAIN INDICATED. PRESENT IN ROOM- INFORMED NOT TO FEED PATIENT AND THAT STAFF MEMBERS ARE ONLY TO FED THE PATIENT. BED ALARM APPLIED; 3 RAILS RAISED. CALL LIGHT IS WITHIN REACH, PATIENT INSTRUCTED TO CALL FOR ASSISTANCE NEEDED. BEDSIDE REPORT GIVEN TO ONCOMING NURSE.
[2019-07-14] MEDS: AZITHROMYCIN 500MG/NS 250 ML 250 ML IV SCH (21:03)
[2019-07-15] VITALS (8 sets, daily range): BP systolic 120–189; BP diastolic 56–81
--- NOTE | 2019-07-15 07:00 | NUR ---
Patient condition throughout the night was stable, patient endorsed to next shift for continuity of care.
--- NOTE | 2019-07-15 07:34 | NUR ---
IM- progress note O/N see below ROS: unreliable v/s; revd PE tired appearing; malnourished appearing anicteric; bitemporal wasting; ns1s2 reduced breath sounds; left arm with bruit at fistula site no edema skin dry flat affect labs/meds revd A/P: left Pleural effusion- will need thoracentesis ESRD on HD- nephr consult HTN- home med Physical deconditioning- PT Moderate to severe Protein-calorie malnutrition- check PreAlb; start renal ensure. Prop; scd Dispo: pulm consulted; drainage pending; 07/12 check H/H; reported 1050ml fluid removed; start PTmobilize; 07/13 Pleural disease- mycobacterial TB being ruled out; LDH low; cont w-up; d/w daughter at bedside. 07/14 Coag negative staph bacteremia- recheck cultures now; Bronch pending; hospice an option thereafter. f/u AFBs. Junior Mejía MD, PhD.
[2019-07-15] MEDS: SEVELAMER CARBONATE 800 MG TAB PO SCH ×3 (08:27→17:05)
[2019-07-15] MEDS: HYDRALAZINE HCL 25 MG TAB PO SCH ×3 (08:28→21:00)
[2019-07-15] MEDS: CINACALCET 30 MG TAB PO SCH (08:37)
[2019-07-15] MEDS: METOPROLOL TARTRATE 50 MG TAB PO SCH ×2 (08:37→17:05)
[2019-07-15] MEDS: ACETAMINOPHEN 325 MG TAB PO PRN (17:05)
--- NOTE | 2019-07-15 19:25 | NUR ---
Bedside shift report completed with morning nurse. Pt alert to touch stimuli, lying in bed HOB 60. No s/so of pain at this time. Family at bedside. Call light within reach. Will continue to monitor,
[2019-07-15] MEDS: AZITHROMYCIN 500MG/NS 250 ML 250 ML IV SCH (20:30)
[2019-07-15] MEDS ORDERED: SODIUM CHLORIDE 0.9% 50ML 50 ML ONE (22:53)
--- NOTE | 2019-07-15 23:34 | NUR ---
Pt with diaphragmatic breathing, RR 28, placed on O2 3L via NC, sat decreased to 85%. Sat increased to 90% on 3L. Called Darrin Mejía, ordered Morphine 2 mg every 4 hours prn.
[2019-07-16] VITALS (8 sets, daily range): BP systolic 128–152; BP diastolic 60–70
[2019-07-16] MEDS: MORPHINE SULFATE 2 MG/ML SYR 1ML IV PRN (00:15)
--- NOTE | 2019-07-16 01:19 | NUR ---
Pulmonary Medicine DATE 07/15/2019 SUBJECTIVE: RA kayli eats little retains food contents in mouth mildly d/w Hd yesterday REVIEW OF SYSTEMS: Cannot get reliably as patient is not oriented. OBJECTIVE: VITAL SIGNS: vital signs noted and reviewed per the chart record. GENERAL: Calm, in bed. HEENT: Normocephalic, atraumatic. NECK : Supple. Throat midline. LUNGS: Bilateral air entry, few / mod rhonchi. CARDIOVASCULAR: S1 and S2. No murmurs, rubs, or gallops. ABDOMEN: Soft, nontender. EXTREMITIES: No clubbing. No cyanosis. no edema. INTEGUMENT: No rash, no purpura. LABORATORY DATA: labs pending IMPRESSION AND PLAN: 1. Large left-sided pleural effusion s/p thoracentesis. Exudative, lymphocytic by Lights criteria. 2. Pneumonia, hospital-associated organisms acquired prior to hospitalization. --aspiration pneumonia --possible OTHER pneumonia with pleural fluid lymphocytosis 3. Hypertension. 4. Gastroesophageal reflux disease. 5. End-stage renal disease, on hemodialysis for 3 years. 6. 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 Finally treated at [facility]. 7. hx CVA, dementia 8. insufficient cough Treat for the active bacterial/aspiration pneumonia. Encourage expectoration. Speech evaluation, MBS pending to be done next available Follow thoracentesis re-analysis of fluid -follow cytology, cell counts Empiric Antibiotics follow up histo, coccidio patient can return to outpatient HD if he is 'noncontagious' with negative AFB smears, but he will need CLOSE longitudinal follow up to ensure the disease process remits or at minimum the process DOESNT blossom. VATS would be the best procedure for diagnostic yield. Consider future hospice Continue dialysis per renal Follow up closely. Thank you Dr Mejía. Please call with questions.
--- NOTE | 2019-07-16 01:30 | NUR ---
O2 sat 92% on 3L via NC. RR 20, no acute distress noted.
--- NOTE | 2019-07-16 05:56 | NUR ---
IM- progress note O/N see below ROS: unreliable v/s; revd PE tired appearing; malnourished appearing anicteric; bitemporal wasting; ns1s2 reduced breath sounds; left arm with bruit at fistula site no edema skin dry flat affect labs/meds revd A/P: left Pleural effusion- will need thoracentesis HAP- POA ESRD on HD- nephr consult HTN- home med Physical deconditioning- PT Moderate to severe Protein-calorie malnutrition- check PreAlb; start renal ensure. Prop; scd Dispo: pulm consulted; drainage pending; 07/12 check H/H; reported 1050ml fluid removed; start PTmobilize; 07/13 Pleural disease- mycobacterial TB being ruled out; LDH low; cont w-up; d/w daughter at bedside. 07/14 Coag negative staph bacteremia- recheck cultures now; Bronch pending; hospice an option thereafter. f/u AFBs. 07/15 HAP- POA; Gram negative bacillus in Bronchial washing- f/u. Junior Mejía MD, PhD.
--- NOTE | 2019-07-16 07:10 | NUR ---
BS report with morning nurse. Pt resting in bed, no acute distress noted. Family at bedside.
[2019-07-16] MEDS: SEVELAMER CARBONATE 800 MG TAB PO SCH ×3 (07:30→16:30)
[2019-07-16] MEDS: HYDRALAZINE HCL 25 MG TAB PO SCH ×3 (09:00→21:00)
[2019-07-16] MEDS: CINACALCET 30 MG TAB PO SCH (09:00)
[2019-07-16] MEDS: METOPROLOL TARTRATE 50 MG TAB PO SCH ×2 (09:00→17:00)
--- NOTE | 2019-07-16 10:29 | NUR ---
Notified Dr. Mahoney that brochcial wash was positive for ESBL. Received orders to stop cefepime and start merrem 500mg IV q24hr.
[2019-07-16] MEDS ORDERED: ACETAMINOPHEN 325 MG SUPP PR PRN (10:45)
[2019-07-16] MEDS: MEROPENEM 500MG/ NS 50ML 50 ML IV SCH (11:00)
--- NOTE | 2019-07-16 19:20 | NUR ---
Visit made by the Spiritual Care Department Pastoral Visitor, Bear Tidwell. PV provided pastoral presence, prayer, communion, hospitality, and supportive listening. Pastoral Visitor informed pt/family of the scope of [employer] and availability. MARIAMA SANCHEZ Automation Driver Spiritual Care Department O: [phone]
--- NOTE | 2019-07-16 19:25 | NUR ---
Completed shift report completed with morning nurse. Pt alert to name, lying in bed HOB 75 degrees. No s/s of pain at this time. Call light within reach. Will continue to monitor.
[2019-07-16] MEDS: AZITHROMYCIN 500MG/NS 250 ML 250 ML IV SCH (20:11)
--- NOTE | 2019-07-16 20:27 | NUR ---
Pulmonary Medicine DATE 07/16/2019 SUBJECTIVE: RA fio2 eats little again REVIEW OF SYSTEMS: Cannot get reliably as patient is not oriented. OBJECTIVE: VITAL SIGNS: vital signs noted and reviewed per the chart record. GENERAL: Calm, in bed. HEENT: Normocephalic, atraumatic. NECK : Supple. Throat midline. LUNGS: Bilateral air entry, few / mod rhonchi. CARDIOVASCULAR: S1 and S2. No murmurs, rubs, or gallops. ABDOMEN: Soft, nontender. EXTREMITIES: No clubbing. No cyanosis. no edema. INTEGUMENT: No rash, no purpura. LABORATORY DATA: no new updates IMPRESSION AND PLAN: 1. Large left-sided pleural effusion s/p thoracentesis. Exudative, lymphocytic by Lights criteria. 2. Pneumonia, hospital-associated organisms acquired prior to hospitalization. --aspiration pneumonia --possible OTHER pneumonia with pleural fluid lymphocytosis 3. Hypertension. 4. Gastroesophageal reflux disease. 5. End-stage renal disease, on hemodialysis for 3 years. 6. 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 Finally treated at [facility]. 7. hx CVA, dementia 8. insufficient cough Treat for the active bacterial/aspiration pneumonia. Encourage expectoration. Speech evaluation, MBS pending to be done next available Follow thoracentesis re-analysis of fluid -follow cytology, cell counts Empiric Antibiotics follow up histo, coccidio patient can return to outpatient HD if he is 'noncontagious' with negative AFB smears, but he will need CLOSE longitudinal follow up to ensure the disease process remits or at minimum the process DOESNT blossom. VATS would be the best procedure for diagnostic yield. Consider future hospice Continue dialysis per renal Follow up closely. Thank you Dr Mejía. Please call with questions.
[2019-07-17] VITALS (7 sets, daily range): BP systolic 120–144; BP diastolic 59–70
[2019-07-17] MEDS: MORPHINE SULFATE 2 MG/ML SYR 1ML IV PRN (01:20)
--- NOTE | 2019-07-17 05:50 | Diagnostic Imaging Report ---
Examination: Single AP view of the chest. COMPARISON: 07/14/2019 INDICATION: Pneumonia DISCUSSION: See impression IMPRESSION: 1. Persistent left lower lobe consolidation and crescentic lucency along the inferolateral left hemithorax which may reflect ex vacuo pneumothorax as previously discussed.. No new consolidations. 2. Stable cardiomediastinal contour with pulmonary venous congestion. Signed by: Dr. Shalom Oneill M.D. on 07/17/2019 5:47 AM
--- NOTE | 2019-07-17 07:12 | NUR ---
Nursing shift report with morning nurse. Pt awake in bed, no acute distress noted.
[2019-07-17] MEDS: SEVELAMER CARBONATE 800 MG TAB PO SCH ×3 (07:30→16:30)
--- NOTE | 2019-07-17 07:40 | NUR ---
PATIENT IN BED RESTING WITH NO S/S OF DISTRESS. TELEMETRY BOX IN PLACE. CALL LIGHT AT REACH.
[2019-07-17] MEDS: HYDRALAZINE HCL 25 MG TAB PO SCH ×3 (09:00→21:00)
[2019-07-17] MEDS: CINACALCET 30 MG TAB PO SCH (09:00)
[2019-07-17] MEDS: METOPROLOL TARTRATE 50 MG TAB PO SCH ×2 (09:00→17:00)
--- NOTE | 2019-07-17 10:15 | NUR ---
IM- progress note O/N see below ROS: unreliable v/s; revd PE tired appearing; malnourished appearing anicteric; bitemporal wasting; ns1s2 reduced breath sounds; left arm with bruit at fistula site no edema skin dry flat affect labs/meds revd A/P: left Pleural effusion- will need thoracentesis HAP- POA ESBL Proteus mirabilis infection in lung (PNA) ESRD on HD- nephr consult HTN- home med Physical deconditioning- PT Moderate to severe Protein-calorie malnutrition- check PreAlb; start renal ensure. Prop; scd Dispo: pulm consulted; drainage pending; 07/12 check H/H; reported 1050ml fluid removed; start PTmobilize; 07/13 Pleural disease- mycobacterial TB being ruled out; LDH low; cont w-up; d/w daughter at bedside. 07/14 Coag negative staph bacteremia- recheck cultures now; Bronch pending; hospice an option thereafter. f/u AFBs. 07/15 HAP- POA; Gram negative bacillus in Bronchial washing- f/u. 3-2 ESBL Proteus mirabilis PNA infection. merrem. d/w family at bedside Junior Mejía MD, PhD.
[2019-07-17] MEDS: MEROPENEM 500MG/ NS 50ML 50 ML IV SCH (11:27)
--- NOTE | 2019-07-17 11:51 | NUR ---
Pulmonary Medicine DATE 07/17/2019 SUBJECTIVE: RA milan eats little again low energy not coughing much nurse is withholding food due to perceived pocketing of food REVIEW OF SYSTEMS: Cannot get reliably as patient is not oriented. OBJECTIVE: VITAL SIGNS: vital signs noted and reviewed per the chart record. GENERAL: Calm, in bed. HEENT: Normocephalic, atraumatic. NECK : Supple. Throat midline. LUNGS: Bilateral air entry, few / mod rhonchi. CARDIOVASCULAR: S1 and S2. No murmurs, rubs, or gallops. ABDOMEN: Soft, nontender. EXTREMITIES: No clubbing. No cyanosis. no edema. INTEGUMENT: No rash, no purpura. LABORATORY DATA: no new updates IMPRESSION AND PLAN: 1. Large left-sided pleural effusion s/p thoracentesis. Exudative, lymphocytic by Lights criteria. 2. Pneumonia, hospital-associated organisms acquired prior to hospitalization. --aspiration pneumonia --possible OTHER pneumonia with pleural fluid lymphocytosis 3. Hypertension. 4. Gastroesophageal reflux disease. 5. End-stage renal disease, on hemodialysis for 3 years. 6. 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 Finally treated at [facility]. 7. hx CVA, dementia 8. insufficient cough Treat for the active bacterial/aspiration pneumonia. Encourage expectoration --escalate CPT Speech evaluation, MBS pending to be done next available Follow thoracentesis re-analysis of fluid -follow cytology, cell counts Empiric Antibiotics follow up histo, coccidio patient can return to outpatient HD if he is 'noncontagious' with negative AFB smears, but he will need CLOSE longitudinal follow up to ensure the disease process remits or at minimum the process DOESNT blossom. VATS would be the best procedure for diagnostic yield. Consider future hospice, rather than tracheostomy? Continue dialysis per renal Follow up closely. Thank you Dr Mejía. Please call with questions.
--- NOTE | 2019-07-17 11:51 | NUR ---
PATIENT HOLDING FOOD IN HIS MOUTH, FOOD HELD. SPEECH THERAPY WILL BE IN FOR MBS. REPOSITIONED IN BED. FAMILY AT BED SIDE
--- NOTE | 2019-07-17 12:49 | Progress Note ---
DATE: 07/17/2019 SUBJECTIVE: Remains quite frail, really not talking much. Events are noted where he had a bronchoscopy and now in isolation as we await final testing of the specimens. Blood cultures are negative. AFB is pending, but bronchial washings are now showing Proteus mirabilis with extended resistant spectrum resistance. PHYSICAL EXAMINATION: VITAL SIGNS: Temperature 96.4, pulse 96, blood pressure 130/67. GENERAL: Appears quite frail and weak. He himself was not talking much and appears somewhat confused. NECK: No JVD. CHEST: Clear with diminished breath sounds on the left. EXTREMITIES: Trace edema. ASSESSMENT: 1. End-stage renal disease, fluid overload better .. 2. Pneumonia, possibly even aspiration with growing Klebsiella from bronchial washings. 3. Hypertension. PLAN: Hemodialysis today, 3-1/2 hour run, 2 potassium bath, blood flow rate 350 mL/minutes, dialysate flow rate 700 mL per minute. Minimal to zero UF. I think at this point, more appropriate to consider palliative care only. However, the family has been somewhat unwilling. We will follow along. MD LOUISE JimenezK/MODL /[id number]
[2019-07-17] MEDS: IPRATROPIUM BROMIDE 0.02% 2.5 ML NEB NEB SCH ×2 (13:35→19:55)
--- NOTE | 2019-07-17 15:48 | NUR ---
PATIENT FAILED MBS. MD NOTIFIED, NEW ORDERS RECEIVED.
--- NOTE | 2019-07-17 16:54 | Diagnostic Imaging Report ---
Modified barium swallow exam with speech pathology service, 07/17/2019 CLINICAL HISTORY: Aspiration Fluoro Time: 0.4 min. Estimated Dose: 1.7 mGy IMPRESSION: Please see the speech pathology service report for details. Barium contrast of multiple consistencies is given to the patient to swallow. Fluoroscopic observation is performed during swallowing. The pharyngeal phase swallowing was not initiated by the patient and there is a large amount of vallecular residue. Signed by: Javi Gu MD on 07/17/2019 4:51 PM
[2019-07-17] MEDS: DEXTROSE 5%/0.45% SOD CHL 1,000 ML IV SCH (17:02)
--- NOTE | 2019-07-17 19:51 | NUR ---
RECEIVED PT IN BED EYES OPEN APHASIC .FAMILY AT THE BEDSIDE .PT IS NPO .PT IS . DIALYZED AND NOT TAKEN THE FLUID .CALL LIGHT WITH IN REACH .CONTINUE TO MONITOR
--- NOTE | 2019-07-17 20:00 | NUR ---
RECEIVED IN BED SITTING .DENIES PAIN .CALL LIGHT WITH IN REACH .CONTINUE TO STEPHIE Hanna Addendum: 07/17/19 at 2323 by Wilfrid Jeong RN WRONG PT
[2019-07-18] VITALS (7 sets, daily range): BP systolic 117–149; BP diastolic 57–73
[2019-07-18] MEDS: IPRATROPIUM BROMIDE 0.02% 2.5 ML NEB NEB SCH ×4 (01:05→19:55)
--- NOTE | 2019-07-18 06:15 | NUR ---
PT RESTING IN THE BED RESPIRATIONS ARE EVEN AND UNLABORED .FAMILY AT THE BEDSIDE .CALL LIGHT WITH IN REACH .CONTINUE TO MONITOR
--- NOTE | 2019-07-18 06:21 | NUR ---
IM- progress note O/N see below ROS: unreliable v/s; revd PE tired appearing; malnourished appearing anicteric; bitemporal wasting; ns1s2 reduced breath sounds; left arm with bruit at fistula site no edema skin dry flat affect labs/meds revd A/P: left Pleural effusion- will need thoracentesis HAP- POA ESBL Proteus mirabilis infection in lung (PNA) ESRD on HD- nephr consult HTN- home med Physical deconditioning- PT Moderate to severe Protein-calorie malnutrition- check PreAlb; start renal ensure. Prop; scd Dispo: pulm consulted; drainage pending; 07/12 check H/H; reported 1050ml fluid removed; start PTmobilize; 07/13 Pleural disease- mycobacterial TB being ruled out; LDH low; cont w-up; d/w daughter at bedside. 07/14 Coag negative staph bacteremia- recheck cultures now; Bronch pending; hospice an option thereafter. f/u AFBs. 07/15 HAP- POA; Gram negative bacillus in Bronchial washing- f/u. 3-2 ESBL Proteus mirabilis PNA infection. merrem. d/w family at bedside 07/17 check labs; Oropharyngeal dysphagia- family wants PEG- GI consult; Junior Mejía MD, PhD.
[2019-07-18 06:37] LABS: BASOPHILS % 0.2 % (0.0-1.0); EOSINOPHILS % 0.2 % (0.0-6.0); HEMATOCRIT 36.6 % (38.2-49.6); HEMOGLOBIN 11.7 g/dL (14.0-18.0); LYMPHOCYTES # (AUTO) 0.9 (1.0-3.2); LYMPHOCYTES % 10.5 % (18.0-39.1); MEAN CORPUSCULAR HEMOGLOBIN 27.1 pg (28-32); MEAN CORPUSCULAR VOLUME 84.7 fL (81-99); MONOCYTES # (AUTO) 0.4 (0.2-0.8); MONOCYTES % 4.3 % (4.4-11.3); NEUTROPHILS # (AUTO) 7.3 (2.1-6.9); NEUTROPHILS % 84.3 % (38.7-80.0); PLATELET COUNT 139 x10e3/uL (140-360); RED BLOOD COUNT 4.32 x10e6/uL (4.3-5.7); RED CELL DISTRIBUTION WIDTH 16.1 % (11.7-14.4)
[2019-07-18 06:53] LABS: ANION GAP 16.5 mmol/L (8-16); CALCIUM 10.8 mg/dL (8.4-10.2); CREATININE, SERUM 3.02 mg/dL (0.72-1.25); POTASSIUM 4.5 mmol/L (3.5-5.1)
--- NOTE | 2019-07-18 07:09 | NUR ---
BEDSIDE REPORT GIVEN TO THE ONCOMING NURSE
[2019-07-18] MEDS: SEVELAMER CARBONATE 800 MG TAB PO SCH ×3 (07:30→16:30)
[2019-07-18] MEDS: METOPROLOL TARTRATE 50 MG TAB PO SCH ×2 (09:00→17:00)
[2019-07-18] MEDS: CINACALCET 30 MG TAB PO SCH (09:00)
[2019-07-18] MEDS: HYDRALAZINE HCL 25 MG TAB PO SCH ×3 (09:00→21:00)
--- NOTE | 2019-07-18 11:38 | NUR ---
ST NOTE: Pt still unable to initiate a pharyngeal swallow, pt unable to participate in dysphagia therapy secondary to lethargy. Family considering peg tube placement. Speech to defer further treatment at this time. If pt level of alertness improves, please re-consult for re-evaluation of swallow function and readiness for PO intake. HAndoff to MILLY Naidu
[2019-07-18] MEDS: MEROPENEM 500MG/ NS 50ML 50 ML IV SCH (12:31)
--- NOTE | 2019-07-18 13:00 | NUR ---
Dr Parsons here to see pt. ordered peg tube placement.
[2019-07-18] MEDS: DEXTROSE 5%/0.45% SOD CHL 1,000 ML IV SCH (16:00)
--- NOTE | 2019-07-18 16:00 | NUR ---
spoke with pt daughter, daughter is aware of peg tube to be place 07/19/19 in am.
--- NOTE | 2019-07-18 19:19 | NUR ---
report given to oncoming nurse, walking rounds complete.
--- NOTE | 2019-07-18 20:00 | NUR ---
RECEIVED PT IN BED EYES OPEN APHASIC .PT IS NPO .ORDER TO PLACE PEG TUBE BY DR GRANT .CALL LIGHT WITH IN REACH .CONTINUE TO MONITOR
--- NOTE | 2019-07-18 21:28 | Consultation ---
DATE OF CONSULTATION: 07/18/2019 HISTORY OF PRESENT ILLNESS: This is 83 years old who apparently was initially admitted because of pleural effusions, apparently failed swallow evaluations, and therefore, GI consult is obtained for possibility of a PEG placement. He is not giving much of a history at this point. MEDICAL PROBLEMS: End-stage renal disease on hemodialysis for 3 years, hypertension, reflux, dementia. ALLERGIES: NONE. CURRENT MEDICATIONS: Including meropenem, Renvela, Atrovent, Lopressor, hydralazine, and Sensipar. SOCIAL HISTORY: Apparently, he has smoked in the past, but not anymore. FAMILY HISTORY: Noncontributory. REVIEW OF SYSTEMS: Unobtainable. The patient is not giving much of a history. PHYSICAL EXAMINATION: GENERAL: The patient is awake, but noncommunicative. VITAL SIGNS: He is afebrile currently. HEENT: Normocephalic, atraumatic. Sclerae are anicteric. NECK: Supple. HEART: Regular. LUNGS: Clear. ABDOMEN: Soft. There is no distention at this point. It is nontender. EXTREMITIES: No clubbing. LABORATORY VALUES: Significant for WBC of 8.63, hemoglobin 11.7, and platelet count of 139. Chemistry; BUN 23, creatinine of 3.02. IMPRESSION: 1. Oropharyngeal dysphagia. The patient will need to have a PEG for nutritional support. 2. History of renal disease, on hemodialysis. RECOMMENDATIONS: Continue current care at this point. We will proceed with EGD with PEG placement tomorrow for further management. MD CLEVE Baldwin/MODL /[id number] cc: MD Dick Elias DO
--- NOTE | 2019-07-18 23:50 | NUR ---
PULMONARY 07/18/19 SEEN AND EXAMINED WITH MARIE TYLER NP. Failed MBS severely. Family wants PEG. AFB smears negative x 2 from bronchoscopy.
[2019-07-19] VITALS (7 sets, daily range): BP systolic 99–189; BP diastolic 58–96
[2019-07-19] MEDS: IPRATROPIUM BROMIDE 0.02% 2.5 ML NEB NEB SCH ×4 (01:02→19:00)
[2019-07-19 06:17] LABS: BASOPHILS % 0.3 % (0.0-1.0); EOSINOPHILS % 0.5 % (0.0-6.0); HEMATOCRIT 36.3 % (38.2-49.6); HEMOGLOBIN 11.7 g/dL (14.0-18.0); LYMPHOCYTES % 12.8 % (18.0-39.1); MEAN CORPUSCULAR HEMOGLOBIN 27.1 pg (28-32); MEAN CORPUSCULAR HGB CONC 32.2 g/dL (31-35); MEAN CORPUSCULAR VOLUME 84.2 fL (81-99); MONOCYTES # (AUTO) 0.5 (0.2-0.8); NEUTROPHILS % 79.5 % (38.7-80.0); PLATELET COUNT 125 x10e3/uL (140-360); RED BLOOD COUNT 4.31 x10e6/uL (4.3-5.7); RED CELL DISTRIBUTION WIDTH 15.9 % (11.7-14.4)
--- NOTE | 2019-07-19 06:19 | NUR ---
IM- progress note O/N see below ROS: unreliable v/s; revd PE tired appearing; malnourished appearing anicteric; bitemporal wasting; ns1s2 reduced breath sounds; left arm with bruit at fistula site no edema skin dry flat affect labs/meds revd A/P: left Pleural effusion- will need thoracentesis HAP- POA ESBL Proteus mirabilis infection in lung (PNA) ESRD on HD- nephr consult HTN- home med Physical deconditioning- PT Moderate to severe Protein-calorie malnutrition- check PreAlb; start renal ensure. Prop; scd Dispo: pulm consulted; drainage pending; 07/12 check H/H; reported 1050ml fluid removed; start PTmobilize; 07/13 Pleural disease- mycobacterial TB being ruled out; LDH low; cont w-up; d/w daughter at bedside. 07/14 Coag negative staph bacteremia- recheck cultures now; Bronch pending; hospice an option thereafter. f/u AFBs. 07/15 HAP- POA; Gram negative bacillus in Bronchial washing- f/u. 3-2 ESBL Proteus mirabilis PNA infection. merrem. d/w family at bedside 07/17 check labs; Oropharyngeal dysphagia- family wants PEG- GI consult; 07/18 AFB negative x2; PEG pending today Junior Mejía MD, PhD.
--- NOTE | 2019-07-19 06:21 | NUR ---
PT RESTING NO ACUTE DISTRESS NOTED .PT IS NPO .DR GRANT IS GOING TO DO EGD AND PEG TUBE .CALL LIGHT WITH IN REACH .CONTINUE TO MONITOR
[2019-07-19 06:27] LABS: INR 0.97; PROTHROMBIN TIME 13.5 seconds (11.9-14.5)
[2019-07-19 06:40] LABS: ALBUMIN/GLOBULIN RATIO 0.5 (0.8-2.0); ANION GAP 14.4 mmol/L (8-16); CALCIUM 10.9 mg/dL (8.4-10.2); CREATININE, SERUM 3.88 mg/dL (0.72-1.25); POTASSIUM 4.4 mmol/L (3.5-5.1)
--- NOTE | 2019-07-19 07:06 | NUR ---
BEDSIDE REPORT GIVEN TO THE ONCOMING NURSE
[2019-07-19] MEDS: SEVELAMER CARBONATE 800 MG TAB PO SCH ×2 (07:30→11:30)
[2019-07-19] MEDS: HYDRALAZINE HCL 25 MG TAB PO SCH (08:31)
[2019-07-19] MEDS: METOPROLOL TARTRATE 50 MG TAB PO SCH (08:31)
[2019-07-19] MEDS: CINACALCET 30 MG TAB PO SCH (08:32)
--- NOTE | 2019-07-19 10:30 | NUR ---
PT RETURNED TO ROOM ,NO PEG PLACEMENT DUE TO PT NEEDING DIALYSIS ,WILL HAVE SURGERY IN AM
--- NOTE | 2019-07-19 11:03 | NUR ---
PT TRANSPORTED TO OR VIA BED.
[2019-07-19] MEDS: MEROPENEM 500MG/ NS 50ML 50 ML IV SCH (11:04)
--- NOTE | 2019-07-19 13:59 | NUR ---
Nutrition Intervention Note RD Recommendation(s) for Physician: - TF Rec's: Initiate TF of Nepro at 10 ml/hr, advance as tolerated to goal rate of 35 ml/hr (to provide 1512 kcal and 68 gm protein). - Water flushes per MD. - Renal MVI once daily. Pt meets criteria for mild protein calorie malnutrition Plan of Care: RD following, monitoring for tolerance and adequacy Nutrition reason for involvement: Dx: ESRD RD Assessment: 07/18: Follow up. Pt out of room at time of visit for EGD and PEG placement today. SENIOR MASTER SCHEDULER following, was unable to complete swallow evaluation yesterday 06/18 lethargy and that family was considering a PEG. Continues on HD. TF rec's provided, will continue to monitor. 07/14: Follow up. Pt was discussed during interdisciplinary rounds. Pt had a thoracentesis yesterday and bronchoscopy today per RN. Per ST note, pt was too fatigued for swallow evaluation after dialysis today and MD recommended following results of previous MBS that was performed on 05/04/19. Mechanical soft /chopped diet consistency and nectar thick liquids were recommended. It is documented in chart that pt consumed 25% of meals on 07/11, 75% of lunch on 07/12, and 25% of dinner yesterday. Will continue to monitor. 07/11: 83 YOM admitted for ESRD, PNA, and pleural effusion. Pt seen today per admit dx. Pt s/p thoracentesis today, sleeping at time of visit. Pt's at bedside reports good intake at home most of the time, sometimes fair. She reports he drinks 1 Nepro per day, she encourages him to drink 2- RD to order Nepro BID to meet needs. Pt's denies any N/V/C/D. She reports that he requires assistance with feedings and is on a mechanical soft diet at home, pt on pureed diet per last admit in April- recommend SENIOR MASTER SCHEDULER evaluation for po diet safety. Pt's with no questions or concerns at time of visit. Chart reviewed. Will continue to monitor. Principal Problems/Diagnoses: ESRD, PNA, pleural effusion PMH: DJD, ESRD on HD, DM, HTN GI: LBM 07/18 Skin: no PU Labs: 07/18: Na 139, K 4.4, BUN 38, Cr 3.88, Gluc 113, Ca 10.9, Phos 4.4 Meds: abx, morphine, renvela, sensipar, IV albumin, zofran, colace Ht: 60in Wt: 101 lb BMI: 19.7 kg/m2 IBW: 106 lb Malnutrition Evaluation (07/11/19) The patient meets criteria for MILD protein-calorie malnutrition. Energy intake: Mild- fair intake at times per Weight loss: minor changes, 5% in 3 months per prior admit Fat loss: Mild, eyes somewhat hollow Muscle loss: Moderate, clavicle visible Supporting Evidence: Fluid accumulation: none observed Functional Status: not assessed Nutrition Prescription (Diet Order): NPO for EGD and PEG placement today Estimated Nutritional Needs: 6824-9371 calories/day (30-35 kcal/kg CBW) 55-82 g protein/day (1.2-1.8 g pro/kg CBW) Diet Adequacy: Not meeting calorie needs, Not meeting protein needs Diet Tolerance: Tolerance pending Diet Education Needs Assessment: Diet education not indicated at this time, PEG placement today Nutrition Care Level: Mod Nutrition Diagnosis: Chronic disease related malnutrition related to ESRD and requiring modified diet as evidenced by increased protein needs and ONS. Goal: Patient will meet 75-100% of estimated needs by follow up Progress: not progressing Interventions: -Composition rate, route, Collaboration with other providers, Recommend modifications Monitoring/Evaluation: -Total energy intake, Total protein intake, formula/solution, Weight change Signed: Samantha Sears RD, LD, [facility]
[2019-07-19] MEDS: DEXTROSE 5%/0.45% SOD CHL 1,000 ML IV SCH (16:00)
--- NOTE | 2019-07-19 18:46 | NUR ---
PT IN BED DIALYSIS FINISHED,REMOVED 1 LITER,PT RESTING NO S/S DISCOMFORT.
--- NOTE | 2019-07-19 19:18 | NUR ---
Pulmonary Medicine DATE 07/19/2019 SUBJECTIVE: HD today PEG post poned until after safety dialysis session d/w daughter, d/w son REVIEW OF SYSTEMS: Cannot get reliably as patient is not oriented. OBJECTIVE: VITAL SIGNS: vital signs noted and reviewed per the chart record. GENERAL: Calm, in bed. HEENT: Normocephalic, atraumatic. NECK : Supple. Throat midline. LUNGS: Bilateral air entry, few / mod rhonchi. CARDIOVASCULAR: S1 and S2. No murmurs, rubs, or gallops. ABDOMEN: Soft, nontender. EXTREMITIES: No clubbing. No cyanosis. no edema. INTEGUMENT: No rash, no purpura. LABORATORY DATA: no new updates IMPRESSION AND PLAN: 1. Large left-sided pleural effusion s/p thoracentesis. Exudative, lymphocytic by Lights criteria. 2. Pneumonia, hospital-associated organisms acquired prior to hospitalization. --aspiration pneumonia --possible OTHER pneumonitis with pleural fluid lymphocytosis 3. Hypertension. 4. Gastroesophageal reflux disease. 5. End-stage renal disease, on hemodialysis for 3 years. 6. 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 Finally treated at [facility]. 7. hx CVA, dementia 8. insufficient cough, dysphagia Treat for the active bacterial/aspiration pneumonia. Encourage expectoration --continue CPT PEG tube when optimized-- tomorrow? Patient had pulled previous NGT and previous discussion not to replace NGT. Follow thoracentesis and bronchoscopy findings to final Follow up histo, coccidio Patient can return to outpatient HD as he is 'noncontagious' with negative AFB smears, but he will need CLOSE longitudinal follow up to ensure the disease process remits or at minimum the process DOESNT blossom. VATS would be the best procedure for diagnostic yield if there is an inclination to diagnose further. Hopefully the patient doesnt require tracheostomy in the future Continue dialysis per renal Follow up closely. Thank you Dr Mejía. Please call with questions.
--- NOTE | 2019-07-19 19:46 | NUR ---
Received change of shift report from AM nurse. Walking rounds completed.
--- NOTE | 2019-07-19 23:19 | NUR ---
Patient resting quitly. Receiving a breathing tx. No noted distress or discomfort at this time. Patient q2 turn and prn. Continue monitor.
[2019-07-20] VITALS (8 sets, daily range): BP systolic 120–138; BP diastolic 51–69
[2019-07-20] MEDS: IPRATROPIUM BROMIDE 0.02% 2.5 ML NEB NEB SCH ×4 (00:40→19:30)
[2019-07-20] MEDS: DEXTROSE 5%/0.45% SOD CHL 1,000 ML IV SCH (05:28)
--- NOTE | 2019-07-20 07:07 | NUR ---
IM- progress note O/N see below ROS: unreliable v/s; revd PE tired appearing; malnourished appearing anicteric; bitemporal wasting; ns1s2 reduced breath sounds; left arm with bruit at fistula site no edema skin dry flat affect labs/meds revd A/P: left Pleural effusion- will need thoracentesis HAP- POA ESBL Proteus mirabilis infection in lung (PNA) ESRD on HD- nephr consult HTN- home med Physical deconditioning- PT Moderate to severe Protein-calorie malnutrition- check PreAlb; start renal ensure. Prop; scd Dispo: pulm consulted; drainage pending; 07/12 check H/H; reported 1050ml fluid removed; start PTmobilize; 07/13 Pleural disease- mycobacterial TB being ruled out; LDH low; cont w-up; d/w daughter at bedside. 07/14 Coag negative staph bacteremia- recheck cultures now; Bronch pending; hospice an option thereafter. f/u AFBs. 07/15 HAP- POA; Gram negative bacillus in Bronchial washing- f/u. 3-2 ESBL Proteus mirabilis PNA infection. merrem. d/w family at bedside 07/17 check labs; Oropharyngeal dysphagia- family wants PEG- GI consult; 07/18 AFB negative x2; PEG pending today 07/19 AFBs negative; PEG pending, then home with PT. Junior Mejía MD, PhD.
--- NOTE | 2019-07-20 07:25 | NUR ---
PT UP IN BED VERY SLLEPY AROUSES EASILY,APHASIC,O2 2L NC IN PLACE,NO SOB NOTED.
--- NOTE | 2019-07-20 10:00 | NUR ---
IV LEAKING LINENS AND GOWN CHANGED,IV RESTARTED TO RT UA 20 GAUGE,TOLERATED WELL.
--- NOTE | 2019-07-20 11:58 | NUR ---
Pulmonary Medicine DATE 07/20/2019 SUBJECTIVE: NPO awaiting peg tube no complications, patient remains lethargic REVIEW OF SYSTEMS: Cannot get reliably as patient is not oriented. OBJECTIVE: VITAL SIGNS: vital signs noted and reviewed per the chart record. GENERAL: Calm, in bed. HEENT: Normocephalic, atraumatic. NECK : Supple. Throat midline. LUNGS: Bilateral air entry, few / mod rhonchi. CARDIOVASCULAR: S1 and S2. No murmurs, rubs, or gallops. ABDOMEN: Soft, nontender. EXTREMITIES: No clubbing. No cyanosis. no edema. INTEGUMENT: No rash, no purpura. LABORATORY DATA: no new updates IMPRESSION AND PLAN: 1. Large left-sided pleural effusion s/p thoracentesis. Exudative, lymphocytic by Lights criteria. 2. Pneumonia, hospital-associated organisms acquired prior to hospitalization. --aspiration pneumonia --possible OTHER pneumonitis with pleural fluid lymphocytosis 3. Hypertension. 4. Gastroesophageal reflux disease. 5. End-stage renal disease, on hemodialysis for 3 years. 6. 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 Finally treated at [facility]. 7. hx CVA, advanced dementia 8. insufficient cough, dysphagia Treat for the active bacterial/aspiration pneumonia. Encourage expectoration --continue CPT PEG tube today -pt had pulled previous NGT and previous discussion not to replace NGT after he pulled it. Follow thoracentesis and bronchoscopy findings to final Follow up histo, coccidio Patient can return to outpatient HD as he is 'noncontagious' with negative AFB smears, but he will need CLOSE longitudinal follow up to ensure the disease process remits or at minimum the process DOESNT blossom. VATS would be the best procedure for diagnostic yield if there is an inclination to diagnose further. Hopefully the patient doesn't require tracheostomy in the future Continue dialysis per renal Follow up closely. Thank you Dr Mejía. Please call with questions.
[2019-07-20] MEDS ORDERED: THIAMINE HCL INJ 100 MG/ML 2ML VIAL IV NR (12:30)
[2019-07-20] MEDS: MEROPENEM 500MG/ NS 50ML 50 ML IV SCH (12:39)
--- NOTE | 2019-07-20 12:59 | NUR ---
PT TRANSPORTED TO OR VIA BED STABLE CONDITION.
[2019-07-20] MEDS ORDERED: SODIUM CHLORIDE 0.9% 500ML 500 ML ONE (13:27)
[2019-07-20] MEDS ORDERED: PROPOFOL IV EMULSION 10 MG/ML 20 ML VIAL ONE (13:55)
[2019-07-20] MEDS ORDERED: LIDOCAINE HCL 2% LOCAL INJ 5 ML SDV VIAL INJ ONE (13:55)
[2019-07-20] MEDS ORDERED: FLUCONAZOLE 100 MG TAB PO NR (14:30)
--- NOTE | 2019-07-20 14:55 | NUR ---
PT RETURNED TO ROOM ,DROWSY,BP138/68,91,96.5,DRSG TO G-TUBE CD&I, MOUTH CARE GIVEN
--- NOTE | 2019-07-20 15:45 | NUR ---
TUBE FEEDING STARTED AT 20 CC/HR
[2019-07-20 16:07] LABS: ABG PCO2 31 mmHg (41-51)
[2019-07-20 16:08] LABS: ABG BASE EXCESS 2.3 mmol/L (-2 - 3); ABG HCO3 25 mmol/L (23-28)
[2019-07-20 16:09] LABS: ABG OXYGEN SATURATION 98.3 % (95-98)
--- NOTE | 2019-07-20 19:16 | NUR ---
PT RESTIN COMFORTABLY ,NO S/S DISCOMFORT
--- NOTE | 2019-07-20 20:00 | NUR ---
Received change of shift report from AM nurse. Walking rounds completed.
[2019-07-21] VITALS (8 sets, daily range): BP systolic 96–132; BP diastolic 41–63
--- NOTE | 2019-07-21 | NUR ---
Patient in bed on right side with head elevated 40 degrees. No noted discomfort or distress. Residuals 20cc. Continue monitor.
--- NOTE | 2019-07-21 05:45 | NUR ---
Patient resting quitly at this time.
[2019-07-21 06:17] LABS: ABG PH 7.51 (7.31-7.41)
[2019-07-21 06:18] LABS: ABG PO2 106 mmHg (80-105)
[2019-07-21 07:00] LABS: ALBUMIN 1.9 g/dL (3.5-5.0); ALBUMIN/GLOBULIN RATIO 0.5 (0.8-2.0); ANION GAP 12.9 mmol/L (8-16); CALCIUM 10.6 mg/dL (8.4-10.2); CREATININE, SERUM 3.72 mg/dL (0.72-1.25); POTASSIUM 3.9 mmol/L (3.5-5.1)
--- NOTE | 2019-07-21 07:00 | NUR ---
Received bedside shift report from off going nurse. Patient is resting in bed, no acute distress. Call light within reach. Bed in the lowest position.
[2019-07-21] MEDS: IPRATROPIUM BROMIDE 0.02% 2.5 ML NEB NEB SCH ×3 (07:29→19:45)
[2019-07-21] MEDS: DEXTROSE 5%/0.45% SOD CHL 1,000 ML IV SCH (08:43)
[2019-07-21] MEDS: FLUCONAZOLE 100 MG TAB PO SCH (08:43)
--- NOTE | 2019-07-21 08:43 | NUR ---
ASSESSED PATIENT'S RESIDUAL, NONE NOTED. PATIENT TOLERATING WELL.
--- NOTE | 2019-07-21 10:03 | NUR ---
PULMONARY I saw and examined the patient with Dr Vaibhav MALAGON. I agree with her note. ABG yesterday, not contributive to encephalopathy issue. Ammonia normal. Will update a CXR today to check the infiltrates. Patient also will have monitoring while tube feeding is increasing-- aspiration cautions.
--- NOTE | 2019-07-21 10:55 | Diagnostic Imaging Report ---
Chest, 1 view, 07/21/2019. History: Pneumonia. Comparison: 07/17/2019. Findings: The cardiomediastinal silhouette is unchanged. Left lower lobe consolidation is unchanged. Crescentic lucency at the left lung base is again noted. Right upper lobe scarring is present. 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 There are no acute osseous or soft tissue abnormalities. Impression: Left lower lobe consolidation and left basilar ex vacuo pneumothorax are unchanged. Signed by: Barrett Schumacher on 07/21/2019 10:53 AM
[2019-07-21] MEDS: MEROPENEM 500MG/ NS 50ML 50 ML IV SCH (11:03)
--- NOTE | 2019-07-21 11:05 | NUR ---
IM- progress note O/N see below ROS: unreliable v/s; revd PE tired appearing; malnourished appearing anicteric; bitemporal wasting; ns1s2 reduced breath sounds; left arm with bruit at fistula site no edema skin dry flat affect labs/meds revd A/P: left Pleural effusion- will need thoracentesis HAP- POA ESBL Proteus mirabilis infection in lung (PNA) ESRD on HD- nephr consult HTN- home med Physical deconditioning- PT Moderate to severe Protein-calorie malnutrition- check PreAlb; start renal ensure. Prop; scd Dispo: pulm consulted; drainage pending; 07/12 check H/H; reported 1050ml fluid removed; start PTmobilize; 07/13 Pleural disease- mycobacterial TB being ruled out; LDH low; cont w-up; d/w daughter at bedside. 07/14 Coag negative staph bacteremia- recheck cultures now; Bronch pending; hospice an option thereafter. f/u AFBs. 07/15 HAP- POA; Gram negative bacillus in Bronchial washing- f/u. 3-2 ESBL Proteus mirabilis PNA infection. merrem. d/w family at bedside 07/17 check labs; Oropharyngeal dysphagia- family wants PEG- GI consult; 07/18 AFB negative x2; PEG pending today 07/19 AFBs negative; PEG pending, then home with PT. 07/20 hospice eval- d/w at bedside; d/w . Junior Mejía MD, PhD.
--- NOTE | 2019-07-21 15:53 | NUR ---
CM MET W AND GRANDSON W DR. MAST TO DISCUSS HOSPICE. DR. MAST REQUESTED NO HD BE DONE IF HOSPICE IS CHOSEN. DISCUSSED FEEDING THE PT W THE FAMILY ALSO. ENCOURAGED ONLY TO MOISTEN THE MOUTH OR INTERMITTENT SIPS OF H2O. THE STATES SHE NEEDED TO SPEAK W HER SON AND DTR. CM ANSWERED QUESTIONS REGARDING HOSPICE. WAS ADAMANT IT MUST BE DONE AT HOME. DISCUSSED CHOICE. CHOICE WAS PROVIDED. CHOSE [facility]. CHOICE LETTER WAS SIGNED AND PLACED IN THE PT'S CHART. CALL TO JACKY PICKENS W [facility] @ [phone] W THE FAMILY AND JAYLYN; BEDSIDE RN. STATES SHE CAN MEET W THE FAMILY IN 20-30MINS. FAMILY WAS IN AGREEMENT. ENCOURAGED THEM TO ASK ANY QUESTIONS THEY MAY HAVE. VERBALIZED UNDERSTANDING.
--- NOTE | 2019-07-21 18:51 | NUR ---
Per hospice automotive leasing sales representative, family decided for patient to go home with hospice. Notified Dr. De La Torre, per patient not to be dialyzed today.
--- NOTE | 2019-07-21 19:00 | NUR ---
RECEIVED REPORT FROM DAY NURSE. BEDSIDE REPORT COMPLETE. PATIENT IS RESTING IN BED. BED IS IN LOWEST POSITION AND CALL WADE IS WITHIN REACH. WILL CONTINUE TO MONITOR PATIENT.
--- NOTE | 2019-07-21 19:38 | NUR ---
Bedside shift report given to oncoming nurse. Patient is resting in bed. No s/s of distress noted. Family members at bedside. Call light within reach. Bed in the lowest position.
[2019-07-21] MEDS: ACETAMINOPHEN 325 MG TAB PO PRN (22:56)
[2019-07-22] VITALS: BP 119/52
[2019-07-22] MEDS: IPRATROPIUM BROMIDE 0.02% 2.5 ML NEB NEB SCH ×3 (00:15→13:00)
[2019-07-22 06:19] VITALS: BP 135/57
--- NOTE | 2019-07-22 06:52 | NUR ---
REPORT GIVEN TO DAY NURSE. PATIENT IS RESTING COMFORTABLY IN BED. BED IS IN LOWEST POSITION AND CALL WADE IS WITHIN REACH.
[2019-07-22] MEDS: FLUCONAZOLE 100 MG TAB PO SCH (08:00)
[2019-07-22] MEDS: DEXTROSE 5%/0.45% SOD CHL 1,000 ML IV SCH (08:00)
--- NOTE | 2019-07-22 08:00 | NUR ---
Feeding rate is at 35cc/hr. Assessed residual, none noted at this time. Will continue to monitor.
[2019-07-22 08:21] VITALS: BP 107/55
[2019-07-22 09:12] VITALS: BP 107/55
--- NOTE | 2019-07-22 09:58 | NUR ---
Notified Dr. Mejía that hospice is supposed to [place] patient between 1200 and 1400, per Md patient can DC home with hospice, no need to be seen by him. Discharge put in. Will await for hospice to [place] [employer] [facility] patient. Daughter notified by case management.
[2019-07-22] MEDS: MEROPENEM 500MG/ NS 50ML 50 ML IV SCH (10:00)
--- NOTE | 2019-07-22 10:14 | NUR ---
SPOKE WITH GEOVANNY AT [facility], PT IS ACCEPTED TO HOSPICE. PT IS READY FOR D/C. [facility] WILL ARRANGE AMBULANCE TRANSPORTATION, ESTIMATED BUILDING CONSULTANT BY 12-2.00 PM, BEDSIDE NURSE WAS MADE AWARE. LATER RECEIVED CALL FROM SONU [phone] FROM [facility], SAID SHE WILL BE THE POINT OF CONTACT FOR ANY QUESTIONS REGARDING HOSPICE/TRANSPORTATION FOR TODAY. SW MET WITH PT'S DTR SRIRAM AND PROVIDED THIS INFORMATION, SHE HAD NO OTHER QUESTIONS.
--- NOTE | 2019-07-22 11:29 | NUR ---
Assessed tube feeding residual, no residual noted at this time. Will continue to monitor.
[2019-07-22 12:09] VITALS: BP 117/53
--- NOTE | 2019-07-22 12:10 | NUR ---
D/C summary Principal Dx: left Pleural effusion- will need thoracentesis HAP- POA ESBL Proteus mirabilis infection in lung (PNA) Dysphagia s/p PEG Secondary Dx: ESRD on HD- nephr consult HTN- home med Physical deconditioning- PT Moderate to severe Protein-calorie malnutrition- check PreAlb; start renal ensure. Prop; scd Dispo: pulm consulted; drainage pending; 07/12 check H/H; reported 1050ml fluid removed; start PTmobilize; 07/13 Pleural disease- mycobacterial TB being ruled out; LDH low; cont w-up; d/w daughter at bedside. 07/14 Coag negative staph bacteremia- recheck cultures now; Bronch pending; hospice an option thereafter. f/u AFBs. 07/15 HAP- POA; Gram negative bacillus in Bronchial washing- f/u. 3-2 ESBL Proteus mirabilis PNA infection. merrem. d/w family at bedside 07/17 check labs; Oropharyngeal dysphagia- family wants PEG- GI consult; 07/18 AFB negative x2; PEG pending today 07/19 AFBs negative; PEG pending, then home with PT. 07/20 hospice eval- d/w at bedside; d/w . d/c to hospice tenable f/u hospice team and PCP d/c>35mins Junior Mejía MD, PhD.
--- NOTE | 2019-07-22 14:10 | NUR ---
Received discharge order from Dr. Mejía, patient is in stable condition. Patient to go home with hospice. IV line to right upper arm discontinued with tip intact by charge nurse. Discharge teaching was provided to daughter at bedside, patient disconnected from feeding and clamped by charge nurse. Patient transported via EMS home. All personal items on hand.
--- NOTE | 2019-07-22 20:49 | Progress Note ---
DATE: 07/22/2019 Pulmonary Medicine Progress Note SUBJECTIVE: The patient was seen and examined at bedside. The patient continues to have a lot of weakness and persistent encephalopathy. Chest x-ray did not show any significant worsening on the chest x-ray yesterday. There is no noted pulmonary cause for any worsening encephalopathy, although stated the pneumonia could explain the encephalopathy itself. In summary, no new findings there. The patient remained in poor shape. Obtunded, very lethargic. REVIEW OF SYSTEMS: Cannot get reliably as he is altered. OBJECTIVE: VITAL SIGNS: Noted, reviewed per the chart record. GENERAL: In no acute distress, but just withdrawn and mostly obtunded. HEENT: Normocephalic, atraumatic. NECK: Supple. Throat midline. LUNGS: Bilateral air entry, limited but clear. CARDIOVASCULAR: S1, S2. No murmurs, rubs, or gallops. ABDOMEN: Soft and nontender. EXTREMITIES: No clubbing. No cyanosis. There is no edema. INTEGUMENT: No rash. No purpura. IMPRESSION AND PLAN: 1. Large left-sided pleural effusion status post thoracentesis. Exudate/lymphocytic, under evaluation. 2. Pneumonia, hospital associated, acquired prior to hospitalization. 3. Other pneumonia with lymphocytosis in the pleural fluid. 4. Encephalopathy, dementia plus acute toxic metabolic. 5. Hypertension. 6. End-stage renal disease. 7. . Continue current treatment as planned. Follow up the antibodies and histoplasmosis antibodies. MD TAHIR Riley/MODL /[id number]
== END 2019-07-22 14:38 | disposition hospice, home (50) | DRG 186 ==
LOC: ER 15:56 → ERHOLD 20:57 → MED/SURG3 07-11 03:26 → IMCU 07-13 03:24 → MED/SURG3 07-13 03:28
PROVIDERS: ADMIT Internal Medicine; ATTEND Internal Medicine
PROC: 0DH68UZ Insertion of Feeding Device into Stomach, Via Natural or Artificial Opening Endoscopic (ICD-10-PCS; 2019-07-10)
PROC: 0W9B3ZZ Drainage of Left Pleural Cavity, Percutaneous Approach (ICD-10-PCS; 2019-07-11)
PROC: 5A1D70Z Performance of Urinary Filtration, Intermittent, Less than 6 Hours Per Day (ICD-10-PCS; principal; 2019-07-12)
PROC: 0W9B3ZZ Drainage of Left Pleural Cavity, Percutaneous Approach (ICD-10-PCS; 2019-07-13)
PROC: 0B9J8ZX Drainage of Left Lower Lung Lobe, Via Natural or Artificial Opening Endoscopic, Diagnostic (ICD-10-PCS; 2019-07-14)
PROC: 0BJ08ZZ Inspection of Tracheobronchial Tree, Via Natural or Artificial Opening Endoscopic (ICD-10-PCS; 2019-07-14)
DX: J90 Pleural effusion, not elsewhere classified (principal); N18.6 End stage renal disease; E43 Unspecified severe protein-calorie malnutrition; J15.6 Pneumonia due to other Gram-negative bacteria; G93.41 Metabolic encephalopathy; I12.0 Hypertensive chronic kidney disease with stage 5 chronic kidney disease or end stage renal disease; Z68.1 Body mass index [BMI] 19.9 or less, adult; N25.81 Secondary hyperparathyroidism of renal origin; G93.49 Other encephalopathy; Z99.2 Dependence on renal dialysis; Y95 Nosocomial condition; K21.9 Gastro-esophageal reflux disease without esophagitis; R62.7 Adult failure to thrive; D63.1 Anemia in chronic kidney disease; F03.90 Unspecified dementia, unspecified severity, without behavioral disturbance, psychotic disturbance, mood disturbance, and anxiety; R13.12 Dysphagia, oropharyngeal phase; Z66 Do not resuscitate
CPT/HCPCS: 31622; 32555; 36415; 36600; 43246; 71045; 71046; 71260; 74230; 74470; 80048; 80053; 82140; 82150; 82550; 82553; 82805; 82945; 82948; 83518; 83615; 83970; 84100; 84132; 84134; 84157; 84484; 85014; 85018; 85025; 85610; 85730; 86635; 86705; 86706; 87040; 87070; 87071; 87102; 87116; 87186; 87205; 87206; 87335; 87340; 87400; 88112; 88305; 89051; 97139; 99284; J0171; J0456; J0692; J0696; J2001; J2250; J2270; J3411; J7030; J7040; J7050; Q9967